=== PATIENT | female | born 1940 | race Caucasian/White ===

== ENCOUNTER 2022-02-16 19:40 | Emergency (ER) | payer SELFPAY ==
[2022-02-16 19:50] VITALS: BP 149/88; RESP 18; TEMP 98.2; BMI 21.9
[2022-02-16] MEDS ORDERED: DIPHTH,PERTUSS(ACELL),TET 0.5 ML DISP.SYRIN IM ONE ×2 (20:57→21:25)
[2022-02-16 21:43] VITALS: PULSE 100
== END 2022-02-16 21:43 | disposition home or self-care (01) ==
LOC: JER 19:40 → JERFT 19:40
PROC: 3E0234Z Introduction of Serum, Toxoid and Vaccine into Muscle, Percutaneous Approach (ICD-10-PCS; principal; 2022-02-16)
DX: S81.811A Laceration without foreign body, right lower leg, initial encounter (principal); W01.119A Fall on same level from slipping, tripping and stumbling with subsequent striking against unspecified sharp object, initial encounter
CPT/HCPCS: 90715; 99284-25

== ENCOUNTER 2022-02-19 14:38 | Emergency (ER) | payer SELFPAY ==
[2022-02-19 14:44] VITALS: BP 136/95; PULSE 99; RESP 20; TEMP 98.1; BMI 21.2
== END 2022-02-19 16:14 | disposition home or self-care (01) ==
LOC: JERFT 14:38
DX: S81.801A Unspecified open wound, right lower leg, initial encounter (principal)
CPT/HCPCS: 99283-25

== ENCOUNTER 2023-08-25 08:10 | Inpatient (IN) | payer OTHER ==
[2023-08-25 10:29] LABS: BASO % 0.2 % (0-2.0); EOS % 0.2 % (0-4.5); HEMATOCRIT 17.2 % (32.4-45.2); LYMPH % 15.7 % (8-40); MCH 23.3 pg (25.7-33.7); MEAN CELL VOLUME 75.2 fl (80-96); MEAN PLT VOLUME 6.3 fl (7.5-11.1); MONO % 9.2 % (3.8-10.2); NEUT % 74.7 % (42.8-82.8); PLATELET COUNT 268 10^3/uL (134-434); RBC 2.28 M/mm3 (3.60-5.2); RDW 18.9 % (11.6-15.6); WHITE BLOOD COUNT 7.6 K/mm3 (4.0-10.0)
[2023-08-25] MEDS ORDERED: ACETAMINOPHEN INJECTION 100 ML IVPB ONE (10:34)
[2023-08-25 10:40] LABS: HEMOGLOBIN 5.3 GM/dL (10.7-15.3)
[2023-08-25] MEDS: SODIUM CHLORIDE 0.9% 500 ML INFUS.BAG IV ONE (10:41)
[2023-08-25] MEDS: ACETAMINOPHEN 1000 MG/100 ML BAG IVPB ONE (10:41)
[2023-08-25 10:52] LABS: POTASSIUM 5.7 mmol/L (3.5-5.1)
[2023-08-25 10:54] LABS: ALBUMIN 1.6 g/dl (3.4-5.0); BLOOD UREA NITROGEN 28.1 mg/dL (7-18); CALCIUM 7.8 mg/dL (8.5-10.1); MAGNESIUM 2.1 mg/dL (1.8-2.4)
[2023-08-25 10:57] LABS: CREATININE 0.8 mg/dL (0.55-1.3)
[2023-08-25 10:59] LABS: BILIRUBIN,TOTAL 0.9 mg/dL (0.2-1); TOT PROT 6.4 g/dl (6.4-8.2)
[2023-08-25 11:02] LABS: N-TERMINAL BNP 585.1 pg/ml (5-450)
[2023-08-25 13:32] LABS: URINE APPEARANCE CLEAR; URINE BILIRUBIN NEGATIVE (NEGATIVE); URINE COLOR YELLOW; URINE GLUCOSE (UA) NEGATIVE (NEGATIVE); URINE KETONE NEGATIVE (NEGATIVE); URINE LEUK ESTERASE NEGATIVE (NEGATIVE); URINE NITRITE NEGATIVE (NEGATIVE); URINE PROTEIN NEGATIVE (NEGATIVE)
[2023-08-25] MEDS: SODIUM ZIRCONIUM CYCLOSILICATE (LOKELMA) 5 GM PACKET PO ONE (15:13)
[2023-08-25] MEDS: SODIUM CHLORIDE 1,000 ML IV SCH (15:13)
[2023-08-25 17:12] VITALS: BMI 20.2
[2023-08-26] MEDS: ACETAMINOPHEN 1000 MG/100 ML BAG IVPB PRN (03:38)
[2023-08-26 08:10] LABS: BASO % 0.4 % (0-2.0); EOS % 0.4 % (0-4.5); HEMATOCRIT 18.7 % (32.4-45.2); LYMPH % 15.9 % (8-40); MCH 25.6 pg (25.7-33.7); MCHC 32.5 g/dl (32.0-36.0); MEAN CELL VOLUME 78.8 fl (80-96); MEAN PLT VOLUME 6.5 fl (7.5-11.1); NEUT % 75.3 % (42.8-82.8); PLATELET COUNT 245 10^3/uL (134-434); RBC 2.37 M/mm3 (3.60-5.2); RDW 20.3 % (11.6-15.6); WHITE BLOOD COUNT 6.9 K/mm3 (4.0-10.0)
[2023-08-26 08:20] LABS: HEMOGLOBIN 6.1 GM/dL (10.7-15.3)
[2023-08-26 08:47] LABS: POTASSIUM 4.6 mmol/L (3.5-5.1)
[2023-08-26 08:54] LABS: BLOOD UREA NITROGEN 28.5 mg/dL (7-18)
[2023-08-26 08:58] LABS: ALBUMIN 1.3 g/dl (3.4-5.0); CALCIUM 7.7 mg/dL (8.5-10.1); MAGNESIUM 2.2 mg/dL (1.8-2.4)
[2023-08-26 09:01] LABS: CREATININE 0.8 mg/dL (0.55-1.3); PHOSPHOROUS 3.1 mg/dL (2.5-4.9)
[2023-08-26 09:03] LABS: BILIRUBIN,TOTAL 0.9 mg/dL (0.2-1); TOT PROT 5.6 g/dl (6.4-8.2)
[2023-08-27 08:28] LABS: BASO % 0.2 % (0-2.0); EOS % 0.1 % (0-4.5); HEMATOCRIT 20.8 % (32.4-45.2); LYMPH % 11.9 % (8-40); MCHC 32.4 g/dl (32.0-36.0); MEAN CELL VOLUME 80.2 fl (80-96); MEAN PLT VOLUME 6.6 fl (7.5-11.1); MONO % 6.1 % (3.8-10.2); NEUT % 81.7 % (42.8-82.8); PLATELET COUNT 260 10^3/uL (134-434); RBC 2.59 M/mm3 (3.60-5.2); RDW 19.8 % (11.6-15.6); WHITE BLOOD COUNT 7.3 K/mm3 (4.0-10.0)
[2023-08-27 08:37] LABS: HEMOGLOBIN 6.7 GM/dL (10.7-15.3)
[2023-08-27 08:52] LABS: POTASSIUM 5.1 mmol/L (3.5-5.1)
[2023-08-27 09:01] LABS: BLOOD UREA NITROGEN 27.6 mg/dL (7-18); CALCIUM 7.7 mg/dL (8.5-10.1)
[2023-08-27 09:04] LABS: CREATININE 0.7 mg/dL (0.55-1.3)
[2023-08-27 10:42] LABS: ANISOCYTOSIS 0; MACROCYTOSIS 0
[2023-08-27] MEDS: FUROSEMIDE 40 MG/4 ML INJECTABLE VIAL IVPUSH ONE (13:35)
[2023-08-27] MEDS: MINERAL OIL/PET HY-PHL TOPICAL OINTMENT 454 GM JAR TP SCH (17:01)
[2023-08-27] MEDS: SODIUM CHLORIDE 1,000 ML IV SCH (17:02)
[2023-08-27] MEDS: ACETAMINOPHEN 325 MG TABLET (FP) PO PRN (18:26)
[2023-08-28 08:36] LABS: POTASSIUM 5.2 mmol/L (3.5-5.1)
[2023-08-28 08:39] LABS: CALCIUM 7.9 mg/dL (8.5-10.1)
[2023-08-28 08:40] LABS: BLOOD UREA NITROGEN 22.9 mg/dL (7-18); MAGNESIUM 2.4 mg/dL (1.8-2.4)
[2023-08-28 08:42] LABS: URIC ACID 4.7 mg/dL (2.6-7.2)
[2023-08-28 08:43] LABS: CREATININE 0.7 mg/dL (0.55-1.3); PHOSPHOROUS 2.5 mg/dL (2.5-4.9)
[2023-08-28] MEDS: MULTIVITAMINS (DAILY MVI) TABLET (FP) PO SCH (09:13)
[2023-08-28] MEDS: SODIUM CHLORIDE 1,000 ML IV SCH (09:16)
[2023-08-28 09:46] LABS: INR 1.38 (0.83-1.09)
[2023-08-28 10:38] LABS: ACTIVATED PTT 30.2 SECONDS (25.2-36.5)
[2023-08-28] MEDS: SODIUM ZIRCONIUM CYCLOSILICATE (LOKELMA) 5 GM PACKET PO SCH (12:25)
[2023-08-29 10:08] LABS: HEMATOCRIT 20.1 % (32.4-45.2); MCH 26.4 pg (25.7-33.7); MCHC 32.4 g/dl (32.0-36.0); MEAN CELL VOLUME 81.5 fl (80-96); MEAN PLT VOLUME 6.5 fl (7.5-11.1); PLATELET COUNT 245 10^3/uL (134-434); RBC 2.46 M/mm3 (3.60-5.2); RDW 20.6 % (11.6-15.6); WHITE BLOOD COUNT 5.7 K/mm3 (4.0-10.0)
[2023-08-29 10:20] LABS: HEMOGLOBIN 6.5 GM/dL (10.7-15.3)
[2023-08-29 10:25] LABS: POTASSIUM 4.7 mmol/L (3.5-5.1)
[2023-08-29 10:28] LABS: CALCIUM 7.6 mg/dL (8.5-10.1)
[2023-08-29 10:29] LABS: BLOOD UREA NITROGEN 16.6 mg/dL (7-18); MAGNESIUM 2.4 mg/dL (1.8-2.4)
[2023-08-29 10:30] LABS: CREATININE 0.7 mg/dL (0.55-1.3); PHOSPHOROUS 2.1 mg/dL (2.5-4.9)
[2023-08-29 12:30] LABS: ANISOCYTOSIS 2+; MACROCYTOSIS 0
[2023-08-30 08:36] LABS: BASO % 0.4 % (0-2.0); EOS % 0.5 % (0-4.5); HEMATOCRIT 19.3 % (32.4-45.2); LYMPH % 13.9 % (8-40); MCHC 32.3 g/dl (32.0-36.0); MEAN CELL VOLUME 80.5 fl (80-96); MEAN PLT VOLUME 6.5 fl (7.5-11.1); MONO % 6.2 % (3.8-10.2); PLATELET COUNT 241 10^3/uL (134-434); RDW 20.7 % (11.6-15.6); WHITE BLOOD COUNT 6.5 K/mm3 (4.0-10.0)
[2023-08-30 08:40] LABS: INR 1.47 (0.83-1.09)
[2023-08-30 08:43] LABS: ACTIVATED PTT 28.7 SECONDS (25.2-36.5)
[2023-08-30 09:04] LABS: POTASSIUM 4.8 mmol/L (3.5-5.1)
[2023-08-30 09:07] LABS: CALCIUM 7.8 mg/dL (8.5-10.1)
[2023-08-30 09:08] LABS: MAGNESIUM 2.2 mg/dL (1.8-2.4)
[2023-08-30 09:10] LABS: ALBUMIN 1.4 g/dl (3.4-5.0)
[2023-08-30 09:11] LABS: CREATININE 0.6 mg/dL (0.55-1.3); HEMOGLOBIN 6.2 GM/dL (10.7-15.3)
[2023-08-30 09:14] LABS: BILIRUBIN,DIRECT 0.4 mg/dL (0.0-0.2)
[2023-08-30 09:15] LABS: TOT PROT 5.9 g/dl (6.4-8.2)
[2023-08-30 09:16] LABS: BILIRUBIN,TOTAL 0.6 mg/dL (0.2-1)
[2023-08-30 09:19] LABS: PHOSPHOROUS 2.1 mg/dL (2.5-4.9)
[2023-08-30 15:07] LABS: IG A QN SERUM. 176 mg/dL (64-422)
[2023-08-30] MEDS: FUROSEMIDE 40 MG/4 ML INJECTABLE VIAL IVPUSH ONE (20:32)
[2023-08-31 07:53] LABS: BASO % 0.4 % (0-2.0); EOS % 0.3 % (0-4.5); HEMOGLOBIN 7.1 GM/dL (10.7-15.3); LYMPH % 17.1 % (8-40); MCH 26.4 pg (25.7-33.7); MCHC 32.3 g/dl (32.0-36.0); MEAN CELL VOLUME 81.7 fl (80-96); MEAN PLT VOLUME 6.5 fl (7.5-11.1); MONO % 7.1 % (3.8-10.2); NEUT % 75.1 % (42.8-82.8); PLATELET COUNT 253 10^3/uL (134-434); RDW 20.2 % (11.6-15.6)
[2023-08-31 08:13] LABS: POTASSIUM 4.7 mmol/L (3.5-5.1)
[2023-08-31 08:17] LABS: CALCIUM 7.8 mg/dL (8.5-10.1)
[2023-08-31 08:18] LABS: MAGNESIUM 2.2 mg/dL (1.8-2.4)
[2023-08-31 08:20] LABS: CREATININE 0.7 mg/dL (0.55-1.3); PHOSPHOROUS 2.2 mg/dL (2.5-4.9); URIC ACID 4.6 mg/dL (2.6-7.2)
[2023-08-31 16:09] LABS: FREE KAPPA,SERUM 54.3 mg/L (3.3-19.4)
[2023-08-31] MEDS: IRON SUCROSE INJECTION 100 MG in SODIUM CHLORIDE 95 ML IVPB ONE (17:23)
[2023-09-01 09:37] LABS: POTASSIUM 4.6 mmol/L (3.5-5.1)
[2023-09-01 09:38] LABS: CALCIUM 7.7 mg/dL (8.5-10.1)
[2023-09-01 09:39] LABS: BLOOD UREA NITROGEN 17.3 mg/dL (7-18)
[2023-09-01 09:42] LABS: URIC ACID 4.1 mg/dL (2.6-7.2)
[2023-09-01 09:43] LABS: CREATININE 0.6 mg/dL (0.55-1.3); PHOSPHOROUS 2.6 mg/dL (2.5-4.9)
[2023-09-01 10:29] LABS: HEMATOCRIT 23.6 % (32.4-45.2); HEMOGLOBIN 7.6 GM/dL (10.7-15.3); MCH 26.4 pg (25.7-33.7); MEAN CELL VOLUME 82.7 fl (80-96); MEAN PLT VOLUME 6.6 fl (7.5-11.1); PLATELET COUNT 252 10^3/uL (134-434); RBC 2.86 M/mm3 (3.60-5.2); RDW 20.3 % (11.6-15.6); WHITE BLOOD COUNT 6.5 K/mm3 (4.0-10.0)
[2023-09-01] MEDS: guaiFENesin 200 MG/10 ML 10 ML UNIT-DOSE CUPS PO PRN (18:41)
[2023-09-02 07:32] LABS: BASO % 0.3 % (0-2.0); EOS % 0.3 % (0-4.5); HEMATOCRIT 20.7 % (32.4-45.2); LYMPH % 13.9 % (8-40); MCH 26.7 pg (25.7-33.7); MCHC 32.4 g/dl (32.0-36.0); MEAN CELL VOLUME 82.5 fl (80-96); MEAN PLT VOLUME 6.5 fl (7.5-11.1); NEUT % 78.5 % (42.8-82.8); PLATELET COUNT 246 10^3/uL (134-434); RBC 2.51 M/mm3 (3.60-5.2); RDW 21.1 % (11.6-15.6); WHITE BLOOD COUNT 6.5 K/mm3 (4.0-10.0)
[2023-09-02 07:35] LABS: HEMOGLOBIN 6.7 GM/dL (10.7-15.3)
[2023-09-02 07:51] LABS: POTASSIUM 4.6 mmol/L (3.5-5.1)
[2023-09-02 07:58] LABS: ALBUMIN 1.3 g/dl (3.4-5.0); CALCIUM 7.6 mg/dL (8.5-10.1)
[2023-09-02 07:59] LABS: BLOOD UREA NITROGEN 17.4 mg/dL (7-18)
[2023-09-02 08:01] LABS: CREATININE 0.7 mg/dL (0.55-1.3)
[2023-09-02 08:03] LABS: BILIRUBIN,TOTAL 0.7 mg/dL (0.2-1); TOT PROT 5.9 g/dl (6.4-8.2)
[2023-09-02 08:53] LABS: ANISOCYTOSIS 2+; MACROCYTOSIS 0
[2023-09-03] MEDS: LACTATED RINGERS SOLUTION 1,000 ML/1,000 ML INFUS.BAG IV SCH (03:11)
[2023-09-03 08:02] LABS: HEMATOCRIT 24.8 % (32.4-45.2); MCH 26.6 pg (25.7-33.7); MCHC 32.1 g/dl (32.0-36.0); MEAN CELL VOLUME 82.9 fl (80-96); MEAN PLT VOLUME 7.1 fl (7.5-11.1); PLATELET COUNT 251 10^3/uL (134-434); RBC 2.99 M/mm3 (3.60-5.2); RDW 19.8 % (11.6-15.6); WHITE BLOOD COUNT 8.5 K/mm3 (4.0-10.0)
[2023-09-03 08:04] LABS: EPI CELLS 35 /uL (0-25.1); HYALINE CASTS 0 /uL (0-3.1); URINE APPEARANCE CLEAR; URINE BACTERIA 433 /uL (0-1359); URINE BILIRUBIN 1+ (NEGATIVE); URINE COLOR DK YELLOW; URINE GLUCOSE (UA) NEGATIVE (NEGATIVE); URINE KETONE NEGATIVE (NEGATIVE); URINE LEUK ESTERASE NEGATIVE (NEGATIVE); URINE NITRITE NEGATIVE (NEGATIVE); URINE PROTEIN 1+ (NEGATIVE); URINE RBC 86.8 /uL (0-23.9); URINE UROBILINOGEN 4.0 E.U/dl mg/dL (0.2-1.0); URINE WBC 20 /uL (0-25.8)
[2023-09-03 08:28] LABS: POTASSIUM 4.5 mmol/L (3.5-5.1)
[2023-09-03 08:38] LABS: ALBUMIN 1.4 g/dl (3.4-5.0); BLOOD UREA NITROGEN 15.7 mg/dL (7-18); CALCIUM 8.1 mg/dL (8.5-10.1); MAGNESIUM 2.2 mg/dL (1.8-2.4)
[2023-09-03 08:41] LABS: CREATININE 0.7 mg/dL (0.55-1.3)
[2023-09-03 08:43] LABS: TOT PROT 6.3 g/dl (6.4-8.2)
[2023-09-03] MEDS ORDERED: CEFEPIME HCL 2 GM VIAL (RESTRICTED TO ID) IVPB SCH (08:45)
[2023-09-03 08:50] LABS: BILIRUBIN,TOTAL 0.9 mg/dL (0.2-1)
[2023-09-03] MEDS ORDERED: FENTANYL CITRATE/PF 50 MCG/ML VIAL ONE ×2 (09:45)
[2023-09-03] MEDS ORDERED: MIDAZOLAM HCL 2 MG/2 ML SINGLE DOSE VIAL ONE (09:45)
[2023-09-03] MEDS: SODIUM CHLORIDE 500 ML IV SCH (10:00)
[2023-09-03] MEDS: FENTANYL CITRATE/PF 50 MCG/ML VIAL IVPUSH ONE (10:14)
[2023-09-03] MEDS: MIDAZOLAM HCL 2 MG/2 ML SINGLE DOSE VIAL IVPUSH ONE (10:14)
[2023-09-03] MEDS: CEFEPIME 2 GM in DEXTROSE 5%-WATER 100 ML IVPB SCH (11:16)
[2023-09-03 17:08] LABS: IG A QN SERUM. 188 mg/dL (64-422); IG M QN SERUM 198 mg/dL (26-217)
[2023-09-03 18:09] LABS: IG A QN SERUM. 197 mg/dL (64-422)
[2023-09-03] MEDS ORDERED: CEFEPIME 2 GM in DEXTROSE 5%-WATER 100 ML IVPB SCH (22:00)
[2023-09-04 08:46] LABS: HEMATOCRIT 23.7 % (32.4-45.2); HEMOGLOBIN 7.8 GM/dL (10.7-15.3); MCH 26.9 pg (25.7-33.7); MCHC 32.9 g/dl (32.0-36.0); MEAN PLT VOLUME 6.8 fl (7.5-11.1); PLATELET COUNT 245 10^3/uL (134-434); RBC 2.89 M/mm3 (3.60-5.2); RDW 20.2 % (11.6-15.6)
[2023-09-04 08:58] LABS: POTASSIUM 4.4 mmol/L (3.5-5.1)
[2023-09-04 09:03] LABS: ALBUMIN 1.3 g/dl (3.4-5.0); BLOOD UREA NITROGEN 19.6 mg/dL (7-18); CALCIUM 7.7 mg/dL (8.5-10.1)
[2023-09-04 09:07] LABS: CREATININE 0.6 mg/dL (0.55-1.3)
[2023-09-04 09:08] LABS: BILIRUBIN,TOTAL 0.8 mg/dL (0.2-1)
[2023-09-04] MEDS: CEFEPIME 1 GM in DEXTROSE 5%-WATER 100 ML IVPB SCH (13:23)
[2023-09-05 09:57] LABS: HEMATOCRIT 27.1 % (32.4-45.2); HEMOGLOBIN 8.6 GM/dL (10.7-15.3); MCH 26.2 pg (25.7-33.7); MCHC 31.9 g/dl (32.0-36.0); MEAN CELL VOLUME 82.1 fl (80-96); MEAN PLT VOLUME 7.2 fl (7.5-11.1); RDW 20.5 % (11.6-15.6); WHITE BLOOD COUNT 11.7 K/mm3 (4.0-10.0)
[2023-09-05 09:57] LABS: POTASSIUM 4.4 mmol/L (3.5-5.1)
[2023-09-05 10:06] LABS: ALBUMIN 1.4 g/dl (3.4-5.0); BLOOD UREA NITROGEN 19.7 mg/dL (7-18); CALCIUM 7.8 mg/dL (8.5-10.1); MAGNESIUM 1.9 mg/dL (1.8-2.4)
[2023-09-05 10:09] LABS: CREATININE 0.7 mg/dL (0.55-1.3); PHOSPHOROUS 2.7 mg/dL (2.5-4.9)
[2023-09-05 10:11] LABS: BILIRUBIN,TOTAL 0.9 mg/dL (0.2-1); TOT PROT 6.3 g/dl (6.4-8.2)
[2023-09-05] MEDS: DEXTROSE 50%-WATER 25 GM/50 ML DISP.SYRIN IVPUSH ONE (10:47)
[2023-09-05] MEDS: SODIUM CHLORIDE 1,000 ML IV SCH (10:57)
[2023-09-05] MEDS: DEXTROSE 50%-WATER - 25 GM/50 ML VIAL IVPUSH ONE (10:58)
[2023-09-05 11:47] LABS: PLATELET COUNT 235 10^3/uL (134-434)
[2023-09-06 08:38] LABS: HEMATOCRIT 22.7 % (32.4-45.2); HEMOGLOBIN 7.4 GM/dL (10.7-15.3); MCH 26.8 pg (25.7-33.7); MCHC 32.7 g/dl (32.0-36.0); MEAN CELL VOLUME 81.9 fl (80-96); MEAN PLT VOLUME 6.9 fl (7.5-11.1); PLATELET COUNT 229 10^3/uL (134-434); RBC 2.77 M/mm3 (3.60-5.2); RDW 19.9 % (11.6-15.6); WHITE BLOOD COUNT 8.3 K/mm3 (4.0-10.0)
[2023-09-06 08:43] LABS: ALBUMIN 1.2 g/dl (3.4-5.0); BLOOD UREA NITROGEN 18.3 mg/dL (7-18)
[2023-09-06 08:44] LABS: CALCIUM 7.4 mg/dL (8.5-10.1); MAGNESIUM 1.9 mg/dL (1.8-2.4)
[2023-09-06 08:47] LABS: CREATININE 0.6 mg/dL (0.55-1.3)
[2023-09-06 08:48] LABS: BILIRUBIN,TOTAL 0.7 mg/dL (0.2-1); TOT PROT 5.7 g/dl (6.4-8.2)
[2023-09-07 07:32] LABS: HEMATOCRIT 24.8 % (32.4-45.2); HEMOGLOBIN 8.1 GM/dL (10.7-15.3); MCH 26.4 pg (25.7-33.7); MCHC 32.5 g/dl (32.0-36.0); MEAN CELL VOLUME 81.1 fl (80-96); MEAN PLT VOLUME 6.7 fl (7.5-11.1); PLATELET COUNT 230 10^3/uL (134-434); RBC 3.06 M/mm3 (3.60-5.2); RDW 19.2 % (11.6-15.6); WHITE BLOOD COUNT 8.4 K/mm3 (4.0-10.0)
[2023-09-07 07:57] LABS: CALCIUM 7.5 mg/dL (8.5-10.1)
[2023-09-07 07:58] LABS: ALBUMIN 1.2 g/dl (3.4-5.0)
[2023-09-07 08:01] LABS: CREATININE 0.6 mg/dL (0.55-1.3); MAGNESIUM 1.8 mg/dL (1.8-2.4)
[2023-09-07 08:02] LABS: TOT PROT 5.8 g/dl (6.4-8.2)
[2023-09-07 08:07] LABS: BILIRUBIN,TOTAL 0.7 mg/dL (0.2-1)
[2023-09-08] MEDS ORDERED: BUPIVACAINE HCL/PF 0.5% (5MG/ML) 10 ML VIAL ONE (07:31)
[2023-09-08] MEDS ORDERED: FENTANYL CITRATE/PF 50 MCG/ML VIAL ONE (07:42)
[2023-09-08] MEDS ORDERED: PROPOFOL 20 ML ONE (07:42)
[2023-09-08] MEDS ORDERED: LIDOCAINE HCL/PF 2% SDV 5ML VIAL ONE (07:42)
[2023-09-08] MEDS ORDERED: LIDOCAINE HCL 1%, 10 MG/ML (20ML VIAL) ONE (07:58)
[2023-09-08] MEDS: ceFAZolin SODIUM 1 GM VIAL IVPB ONE ×2 (08:15→08:20)
[2023-09-08] MEDS ORDERED: ceFAZolin SODIUM 1 GM VIAL ONE (08:25)
[2023-09-08] MEDS ORDERED: DEXAMETHASONE SOD PHOSPHATE 4 MG/1 ML VIAL ONE (08:25)
[2023-09-08] MEDS: LIDOCAINE 1% P/F 10 MG/ML VIAL INF ONE (08:40)
[2023-09-08] MEDS: LIDOCAINE HCL 1%, 10 MG/ML (50 mL VIAL) NR ONE (08:40)
[2023-09-08] MEDS: BUPIVACAINE HCL/PF 0.5% (5MG/ML) 10 ML VIAL IJ ONE ×2 (08:40)
[2023-09-08] MEDS ORDERED: ONDANSETRON 4 MG/2 ML VIAL ONE (08:59)
[2023-09-08] MEDS ORDERED: KETOROLAC TROMETHAMINE 30 MG/1 ML VIAL ONE (08:59)
[2023-09-08] MEDS: LACTATED RINGERS SOLUTION 1,000 ML/1,000 ML INFUS.BAG IV SCH (09:30)
[2023-09-08] MEDS ORDERED: ONDANSETRON 4 MG/2 ML VIAL IVPUSH PRN ×2 (09:32→09:43)
[2023-09-08] MEDS ORDERED: PROMETHAZINE HCL 25 MG/1 ML VIAL IVPB PRN ×2 (09:32→09:43)
[2023-09-08] MEDS ORDERED: guaiFENesin 200 MG/10 ML 10 ML UNIT-DOSE CUPS PO PRN (09:43)
[2023-09-08] MEDS ORDERED: LACTATED RINGERS SOLUTION 1,000 ML IV SCH (09:45)
[2023-09-08] MEDS ORDERED: ACETAMINOPHEN INJECTION 100 ML IVPB ONE (09:48)
[2023-09-08] MEDS: ACETAMINOPHEN 1000 MG/100 ML BAG IVPB ONE ×2 (09:50→10:16)
[2023-09-08] MEDS: CEFEPIME 1 GM in DEXTROSE 5%-WATER 100 ML IVPB SCH (11:11)
[2023-09-08 13:01] LABS: BASO % 0.1 % (0-2.0); EOS % 0.1 % (0-4.5); HEMATOCRIT 26.3 % (32.4-45.2); HEMOGLOBIN 8.7 GM/dL (10.7-15.3); LYMPH % 8.6 % (8-40); MCH 26.8 pg (25.7-33.7); MEAN CELL VOLUME 81.1 fl (80-96); MONO % 6.2 % (3.8-10.2); PLATELET COUNT 222 10^3/uL (134-434); RBC 3.24 M/mm3 (3.60-5.2); RDW 20.1 % (11.6-15.6); WHITE BLOOD COUNT 7.1 K/mm3 (4.0-10.0)
[2023-09-08 13:47] LABS: POTASSIUM 4.4 mmol/L (3.5-5.1)
[2023-09-08 13:53] LABS: CALCIUM 7.9 mg/dL (8.5-10.1)
[2023-09-08 13:54] LABS: ALBUMIN 1.3 g/dl (3.4-5.0)
[2023-09-08 13:55] LABS: BILIRUBIN,TOTAL 0.6 mg/dL (0.2-1)
[2023-09-08 13:56] LABS: CREATININE 0.7 mg/dL (0.55-1.3)
[2023-09-08 13:58] LABS: TOT PROT 5.9 g/dl (6.4-8.2)
[2023-09-08] MEDS: SODIUM ZIRCONIUM CYCLOSILICATE (LOKELMA) 5 GM PACKET PO SCH (15:21)
[2023-09-08] MEDS: MULTIVITAMINS (DAILY MVI) TABLET (FP) PO SCH (15:21)
[2023-09-08] MEDS: MINERAL OIL/PET HY-PHL TOPICAL OINTMENT 454 GM JAR TP SCH (15:25)
[2023-09-08] MEDS: AMINO ACIDS/PROTEIN HYDROLYS 30 ML LIQUID.PKT PO SCH (16:48)
[2023-09-09] MEDS: LACTATED RINGERS SOLUTION 1,000 ML/1,000 ML INFUS.BAG IV SCH (10:27)
[2023-09-09] MEDS: ACETAMINOPHEN 325 MG TABLET (FP) PO PRN (23:37)
[2023-09-10] MEDS: FUROSEMIDE 40 MG/4 ML INJECTABLE VIAL IVPUSH ONE (08:53)
[2023-09-10] MEDS: LACTATED RINGERS SOLUTION 1,000 ML/1,000 ML INFUS.BAG IV SCH (09:05)
[2023-09-10] MEDS: ACETAMINOPHEN 1000 MG/100 ML BAG IVPB ONE (09:05)
[2023-09-10 09:43] LABS: HEMATOCRIT 25.7 % (32.4-45.2); HEMOGLOBIN 8.3 GM/dL (10.7-15.3); MCH 26.7 pg (25.7-33.7); MCHC 32.5 g/dl (32.0-36.0); MEAN CELL VOLUME 82.2 fl (80-96); MEAN PLT VOLUME 7.5 fl (7.5-11.1); PLATELET COUNT 283 10^3/uL (134-434); RBC 3.12 M/mm3 (3.60-5.2); RDW 19.9 % (11.6-15.6); WHITE BLOOD COUNT 5.8 K/mm3 (4.0-10.0)
[2023-09-10 10:00] LABS: POTASSIUM 4.2 mmol/L (3.5-5.1)
[2023-09-10 10:04] LABS: BLOOD UREA NITROGEN 36.2 mg/dL (7-18)
[2023-09-10 10:06] LABS: CALCIUM 7.7 mg/dL (8.5-10.1)
[2023-09-10 10:07] LABS: CREATININE 0.9 mg/dL (0.55-1.3)
[2023-09-10 13:01] VITALS: BP 129/78; PULSE 114; RESP 20; TEMP 98
== END 2023-09-10 14:07 | DRG 823 ==
LOC: JER 08:10 → JERBED 13:01 → J7W 13:51 → OBSVTOIN 14:33
PROVIDERS: ADMIT Internal Medicine; ATTEND Internal Medicine
PROC: 30233N1 Transfusion of Nonautologous Red Blood Cells into Peripheral Vein, Percutaneous Approach (ICD-10-PCS; 2023-08-25)
PROC: 07B63ZX Excision of Left Axillary Lymphatic, Percutaneous Approach, Diagnostic (ICD-10-PCS; 2023-08-30)
PROC: 079T3ZX Drainage of Bone Marrow, Percutaneous Approach, Diagnostic (ICD-10-PCS; 2023-09-03)
PROC: 07B63ZX Excision of Left Axillary Lymphatic, Percutaneous Approach, Diagnostic (ICD-10-PCS; principal; 2023-09-08 08:00)
DX: C85.10 Unspecified B-cell lymphoma, unspecified site (principal); J18.9 Pneumonia, unspecified organism; E46 Unspecified protein-calorie malnutrition; E87.1 Hypo-osmolality and hyponatremia; D64.9 Anemia, unspecified; R16.1 Splenomegaly, not elsewhere classified; Z68.20 Body mass index [BMI] 20.0-20.9, adult; E87.5 Hyperkalemia; E83.51 Hypocalcemia; R74.01 Elevation of levels of liver transaminase levels; E86.0 Dehydration; R59.1 Generalized enlarged lymph nodes
CPT/HCPCS: 0241U-QW; 20225; 32408; 36415; 36430; 36511; 70450-TC; 71045-TC-FY; 71260-TC; 73560-TC-LT-FY; 73560-TC-RT-FY; 74018-TC-FY; 74177-TC; 76942-TC; 77012-TC; 80048; 80053; 80076; 81003; 82272; 82728; 82784; 82962; 83010; 83051; 83540; 83550; 83615; 83735; 83880; 83883; 84100; 84155; 84165; 84436; 84443; 84484; 84550; 85025; 85027; 85045; 85384; 85610; 85730; 86850; 86880; 86900; 86901; 86922; 87040; 87086; 88300-TC; 88305-TC; 88307-TC; 93005; 93010; 94010; 94760; 97116-GP; 97161-GP; 99285-25; G0378; J0131; P9038; P9058; Q9967

== ENCOUNTER 2023-09-12 22:35 | Inpatient (IN) | payer OTHER ==
[2023-09-12] MEDS ORDERED: ACETAMINOPHEN INJECTION 100 ML IVPB ONE (23:45)
[2023-09-13] MEDS: ACETAMINOPHEN 1000 MG/100 ML BAG IVPB ONE (00:14)
[2023-09-13 00:32] LABS: BASO % 0.6 % (0-2.0); EOS % 0.4 % (0-4.5); HEMATOCRIT 21.3 % (32.4-45.2); LYMPH % 16.1 % (8-40); MCH 26.6 pg (25.7-33.7); MCHC 32.4 g/dl (32.0-36.0); MEAN CELL VOLUME 82.2 fl (80-96); MEAN PLT VOLUME 7.3 fl (7.5-11.1); MONO % 9.5 % (3.8-10.2); NEUT % 73.4 % (42.8-82.8); PLATELET COUNT 256 10^3/uL (134-434); RBC 2.59 M/mm3 (3.60-5.2); RDW 19.5 % (11.6-15.6); WHITE BLOOD COUNT 5.9 K/mm3 (4.0-10.0)
[2023-09-13 00:44] LABS: POTASSIUM 4.1 mmol/L (3.5-5.1)
[2023-09-13 00:46] LABS: CALCIUM 7.6 mg/dL (8.5-10.1)
[2023-09-13 00:47] LABS: ALBUMIN 1.2 g/dl (3.4-5.0); BLOOD UREA NITROGEN 19.6 mg/dL (7-18)
[2023-09-13 00:50] LABS: CREATININE 0.7 mg/dL (0.55-1.3)
[2023-09-13 00:52] LABS: BILIRUBIN,TOTAL 0.7 mg/dL (0.2-1)
[2023-09-13 00:55] LABS: N-TERMINAL BNP 3009.9 pg/ml (5-450)
[2023-09-13 00:56] LABS: HEMOGLOBIN 6.9 GM/dL (10.7-15.3)
[2023-09-13 01:16] LABS: INR 1.72 (0.83-1.09); PROTHROMBIN TIME (PATIENT) 19.8 SEC (9.7-13.0)
[2023-09-13 01:19] LABS: ACTIVATED PTT 27.8 SECONDS (25.2-36.5)
[2023-09-13] MEDS: FUROSEMIDE 40 MG/4 ML INJECTABLE VIAL IVPUSH ONE (06:40)
[2023-09-13 09:47] LABS: ANISOCYTOSIS 1+; MACROCYTOSIS 0
[2023-09-13 09:51] LABS: BASO % 0.4 % (0-2.0); EOS % 0.3 % (0-4.5); HEMATOCRIT 25.9 % (32.4-45.2); HEMOGLOBIN 8.5 GM/dL (10.7-15.3); MCH 27.1 pg (25.7-33.7); MCHC 32.9 g/dl (32.0-36.0); MEAN CELL VOLUME 82.3 fl (80-96); MEAN PLT VOLUME 7.2 fl (7.5-11.1); NEUT % 81.3 % (42.8-82.8); PLATELET COUNT 291 10^3/uL (134-434); RBC 3.15 M/mm3 (3.60-5.2); RDW 18.9 % (11.6-15.6); WHITE BLOOD COUNT 6.9 K/mm3 (4.0-10.0)
[2023-09-13 10:03] LABS: CHLORIDE 103 mmol/L (98-107); POTASSIUM 3.8 mmol/L (3.5-5.1); SODIUM 138 mmol/L (136-145)
[2023-09-13 10:06] LABS: ALBUMIN 1.4 g/dl (3.4-5.0); CALCIUM 7.7 mg/dL (8.5-10.1)
[2023-09-13 10:07] LABS: ANION GAP 8 mmol/L (4-13); BLOOD UREA NITROGEN 18.2 mg/dL (7-18); CO2 27 mmol/L (21-32); GLUCOSE,RANDOM 74 mg/dL (74-106)
[2023-09-13 10:09] LABS: IRON SERUM 23 ug/dL (50-175)
[2023-09-13 10:10] LABS: CREATININE 0.7 mg/dL (0.55-1.3); SGOT/AST 65 U/L (15-37); SGPT/ALT 25 U/L (13-61); TOTAL IRON BINDING CAPACITY 129 ug/dL (250-450)
[2023-09-13 10:11] LABS: BILIRUBIN,TOTAL 0.8 mg/dL (0.2-1); TOT PROT 6.3 g/dl (6.4-8.2)
[2023-09-13 10:12] LABS: ALK PHOS 163 U/L (45-117); LDH 226 U/L (84-246)
[2023-09-13] MEDS ORDERED: ACETAMINOPHEN 1000 MG/100 ML BAG IVPB PRN (12:41)
[2023-09-13] MEDS: LIDOCAINE 4% PATCH TP SCH (15:22)
[2023-09-13] MEDS: IBUPROFEN 400 MG TABLET (FP) PO PRN (15:59)
[2023-09-13] MEDS: PIPERACILLIN/TAZOB 3.375 GM 3.375 GM in DEXTROSE 5%-WATER - 50 ML IVPB SCH (16:56)
[2023-09-13] MEDS: guaiFENesin 200 MG/10 ML 10 ML UNIT-DOSE CUPS PO PRN (17:00)
[2023-09-13] MEDS: SODIUM CHLORIDE 1,000 ML IV SCH (19:41)
[2023-09-13] MEDS: OSELTAMIVIR PHOSPHATE 75 MG CAPSULE PO SCH (21:47)
[2023-09-13] MEDS: LIDOCAINE PATCH REMOVAL MC SCH (21:47)
[2023-09-14 09:17] LABS: HEMATOCRIT 29.8 % (32.4-45.2); HEMOGLOBIN 9.8 GM/dL (10.7-15.3); MCH 27.1 pg (25.7-33.7); MCHC 32.9 g/dl (32.0-36.0); MEAN CELL VOLUME 82.3 fl (80-96); MEAN PLT VOLUME 7.1 fl (7.5-11.1); PLATELET COUNT 296 10^3/uL (134-434); RBC 3.62 M/mm3 (3.60-5.2); RDW 18.8 % (11.6-15.6); WHITE BLOOD COUNT 8.8 K/mm3 (4.0-10.0)
[2023-09-14 09:36] LABS: POTASSIUM 3.5 mmol/L (3.5-5.1)
[2023-09-14 09:41] LABS: ALBUMIN 1.4 g/dl (3.4-5.0); CALCIUM 8.2 mg/dL (8.5-10.1)
[2023-09-14 09:42] LABS: BLOOD UREA NITROGEN 19.7 mg/dL (7-18)
[2023-09-14 09:45] LABS: CREATININE 0.7 mg/dL (0.55-1.3)
[2023-09-14 09:46] LABS: BILIRUBIN,TOTAL 0.8 mg/dL (0.2-1); TOT PROT 6.5 g/dl (6.4-8.2)
[2023-09-15 07:35] LABS: HEMATOCRIT 29.3 % (32.4-45.2); HEMOGLOBIN 9.3 GM/dL (10.7-15.3); MCH 26.4 pg (25.7-33.7); MCHC 31.8 g/dl (32.0-36.0); MEAN CELL VOLUME 82.8 fl (80-96); MEAN PLT VOLUME 7.2 fl (7.5-11.1); PLATELET COUNT 256 10^3/uL (134-434); RBC 3.54 M/mm3 (3.60-5.2); RDW 18.9 % (11.6-15.6)
[2023-09-15] MEDS: PIPERACILLIN/TAZOB 3.375 GM 3.375 GM in DEXTROSE 5%-WATER - 50 ML IVPB SCH (07:39)
[2023-09-15 08:25] LABS: POTASSIUM 3.7 mmol/L (3.5-5.1)
[2023-09-15 08:39] LABS: ALBUMIN 1.3 g/dl (3.4-5.0); BLOOD UREA NITROGEN 20.3 mg/dL (7-18); CALCIUM 8.4 mg/dL (8.5-10.1)
[2023-09-15 08:42] LABS: CREATININE 0.8 mg/dL (0.55-1.3)
[2023-09-15 08:44] LABS: BILIRUBIN,TOTAL 0.7 mg/dL (0.2-1); TOT PROT 6.3 g/dl (6.4-8.2)
[2023-09-15] MEDS: FAMOTIDINE 20 MG TABLET PO SCH (10:34)
[2023-09-15] MEDS: METOPROLOL TARTRATE 25 MG TABLET (FP) PO SCH (10:34)
[2023-09-16 12:48] LABS: EPI CELLS >36 /uL (0-25.1); HYALINE CASTS 3 /uL (0-3.1); URINE APPEARANCE TURBID; URINE BACTERIA 4 /uL (0-1359); URINE BILIRUBIN 1+ (NEGATIVE); URINE COLOR DK YELLOW; URINE GLUCOSE (UA) NEGATIVE (NEGATIVE); URINE KETONE NEGATIVE (NEGATIVE); URINE LEUK ESTERASE NEGATIVE (NEGATIVE); URINE NITRITE NEGATIVE (NEGATIVE); URINE PROTEIN 3+ (NEGATIVE); URINE WBC 54 /uL (0-25.8)
[2023-09-16 14:23] LABS: URINE RBC 23 /uL (0-23.9)
[2023-09-16] MEDS: PIPERACILLIN/TAZOB 3.375 GM 3.375 GM in DEXTROSE 5%-WATER - 50 ML IVPB SCH (17:16)
[2023-09-17 07:42] LABS: HEMATOCRIT 26.2 % (32.4-45.2); HEMOGLOBIN 8.7 GM/dL (10.7-15.3); MCH 27.4 pg (25.7-33.7); MCHC 33.1 g/dl (32.0-36.0); MEAN CELL VOLUME 82.8 fl (80-96); MEAN PLT VOLUME 7.1 fl (7.5-11.1); PLATELET COUNT 251 10^3/uL (134-434); RBC 3.16 M/mm3 (3.60-5.2); WHITE BLOOD COUNT 9.2 K/mm3 (4.0-10.0)
[2023-09-17 07:55] LABS: POTASSIUM 3.7 mmol/L (3.5-5.1)
[2023-09-17 07:59] LABS: ALBUMIN 1.2 g/dl (3.4-5.0); CALCIUM 7.8 mg/dL (8.5-10.1)
[2023-09-17 08:00] LABS: BLOOD UREA NITROGEN 19.3 mg/dL (7-18)
[2023-09-17] MEDS ORDERED: DEXTROSE 50%-WATER 25 GM/50 ML DISP.SYRIN IVPUSH ONE (08:01)
[2023-09-17 08:02] LABS: CREATININE 0.8 mg/dL (0.55-1.3)
[2023-09-17 08:04] LABS: BILIRUBIN,TOTAL 0.8 mg/dL (0.2-1)
[2023-09-17] MEDS: DEXTROSE 50%-WATER 25 GM/50 ML DISP.SYRIN IVPUSH ONE (10:38)
[2023-09-17 11:53] LABS: INR 1.72 (0.83-1.09); PROTHROMBIN TIME (PATIENT) 19.9 SEC (9.7-13.0)
[2023-09-17] MEDS: ACETAMINOPHEN 1000 MG/100 ML BAG IVPB PRN (17:58)
[2023-09-18 08:02] LABS: POTASSIUM 3.9 mmol/L (3.5-5.1)
[2023-09-18 08:10] LABS: ALBUMIN 1.4 g/dl (3.4-5.0)
[2023-09-18 08:11] LABS: BLOOD UREA NITROGEN 22.8 mg/dL (7-18); CALCIUM 8.1 mg/dL (8.5-10.1); MAGNESIUM 1.8 mg/dL (1.8-2.4)
[2023-09-18 08:14] LABS: BILIRUBIN,TOTAL 0.7 mg/dL (0.2-1)
[2023-09-18 08:19] LABS: HEMATOCRIT 29.2 % (32.4-45.2); HEMOGLOBIN 9.4 GM/dL (10.7-15.3); MCH 26.7 pg (25.7-33.7); MCHC 32.3 g/dl (32.0-36.0); MEAN CELL VOLUME 82.9 fl (80-96); MEAN PLT VOLUME 7.5 fl (7.5-11.1); RBC 3.53 M/mm3 (3.60-5.2); RDW 18.8 % (11.6-15.6); WHITE BLOOD COUNT 14.2 K/mm3 (4.0-10.0)
[2023-09-18 09:42] LABS: PLATELET COUNT 264 10^3/uL (134-434)
[2023-09-19] MEDS ORDERED: ALBUTEROL SO4 2.5/IPRATROPIUM 0.5 INH SOL 3 ML VIAL.NEB. NEB PRN (07:55)
[2023-09-19 08:07] LABS: HEMATOCRIT 25.8 % (32.4-45.2); HEMOGLOBIN 8.2 GM/dL (10.7-15.3); MCH 26.7 pg (25.7-33.7); MCHC 31.6 g/dl (32.0-36.0); MEAN CELL VOLUME 84.5 fl (80-96); MEAN PLT VOLUME 7.4 fl (7.5-11.1); PLATELET COUNT 219 10^3/uL (134-434); RBC 3.05 M/mm3 (3.60-5.2); WHITE BLOOD COUNT 9.7 K/mm3 (4.0-10.0)
[2023-09-19 08:22] LABS: POTASSIUM 3.8 mmol/L (3.5-5.1)
[2023-09-19 08:24] LABS: ALBUMIN 1.2 g/dl (3.4-5.0); CALCIUM 7.6 mg/dL (8.5-10.1)
[2023-09-19 08:25] LABS: BLOOD UREA NITROGEN 20.9 mg/dL (7-18); MAGNESIUM 1.8 mg/dL (1.8-2.4)
[2023-09-19 08:27] LABS: CREATININE 0.9 mg/dL (0.55-1.3)
[2023-09-19 08:28] LABS: PHOSPHOROUS 2.8 mg/dL (2.5-4.9)
[2023-09-19 08:29] LABS: BILIRUBIN,TOTAL 0.6 mg/dL (0.2-1); TOT PROT 6.3 g/dl (6.4-8.2)
[2023-09-19] MEDS: ACETAMINOPHEN 1000 MG/100 ML BAG IVPB SCH (12:19)
[2023-09-20 12:45] LABS: HEMATOCRIT 25.8 % (32.4-45.2); HEMOGLOBIN 8.3 GM/dL (10.7-15.3); MCH 26.9 pg (25.7-33.7); MCHC 32.1 g/dl (32.0-36.0); MEAN CELL VOLUME 83.9 fl (80-96); MEAN PLT VOLUME 7.3 fl (7.5-11.1); PLATELET COUNT 203 10^3/uL (134-434); RBC 3.08 M/mm3 (3.60-5.2); RDW 19.2 % (11.6-15.6); WHITE BLOOD COUNT 9.6 K/mm3 (4.0-10.0)
[2023-09-20 13:15] LABS: POTASSIUM 4.2 mmol/L (3.5-5.1)
[2023-09-20 13:19] LABS: ALBUMIN 1.3 g/dl (3.4-5.0); BLOOD UREA NITROGEN 22.3 mg/dL (7-18)
[2023-09-20 13:21] LABS: PHOSPHOROUS 2.8 mg/dL (2.5-4.9)
[2023-09-20 13:23] LABS: BILIRUBIN,TOTAL 0.4 mg/dL (0.2-1); TOT PROT 6.4 g/dl (6.4-8.2)
[2023-09-21] MEDS: LACTATED RINGERS SOLUTION 1,000 ML/1,000 ML INFUS.BAG IV SCH ×2 (01:28→17:25)
[2023-09-21] MEDS ORDERED: BUPIVACAINE HCL/PF 0.25% (2.5MG/ML) 10 ML VIAL ONE (12:13)
[2023-09-21 13:01] LABS: HEMATOCRIT 23.7 % (32.4-45.2); HEMOGLOBIN 7.5 GM/dL (10.7-15.3); MCH 26.8 pg (25.7-33.7); MCHC 31.8 g/dl (32.0-36.0); MEAN CELL VOLUME 84.3 fl (80-96); MEAN PLT VOLUME 7.9 fl (7.5-11.1); PLATELET COUNT 222 10^3/uL (134-434); RBC 2.81 M/mm3 (3.60-5.2); RDW 19.3 % (11.6-15.6); WHITE BLOOD COUNT 8.4 K/mm3 (4.0-10.0)
[2023-09-21] MEDS ORDERED: PROPOFOL 60 ML ONE (13:05)
[2023-09-21 13:10] LABS: INR 1.59 (0.83-1.09); PROTHROMBIN TIME (PATIENT) 18.4 SEC (9.7-13.0)
[2023-09-21 13:36] LABS: HEMATOCRIT 26.2 % (32.4-45.2); HEMOGLOBIN 8.2 GM/dL (10.7-15.3); MCH 26.3 pg (25.7-33.7); MCHC 31.2 g/dl (32.0-36.0); MEAN CELL VOLUME 84.4 fl (80-96); MEAN PLT VOLUME 7.2 fl (7.5-11.1); PLATELET COUNT 229 10^3/uL (134-434); RDW 19.3 % (11.6-15.6)
[2023-09-21] MEDS ORDERED: CALCIUM CHLORIDE 1 GM/10 ML *DISP.SYRIN ONE (13:39)
[2023-09-21] MEDS ORDERED: ALBUTEROL SO4 HFA INHALER IH ONE (13:46)
[2023-09-21] MEDS: PIPERACILLIN/TAZOBACTAM 3.375 GM VIAL IVPB ONE (13:50)
[2023-09-21 13:51] LABS: INR 1.6 (0.83-1.09); PROTHROMBIN TIME (PATIENT) 18.5 SEC (9.7-13.0)
[2023-09-21 13:53] LABS: POTASSIUM 4.2 mmol/L (3.5-5.1)
[2023-09-21 13:54] LABS: ACTIVATED PTT 33.8 SECONDS (25.2-36.5)
[2023-09-21] MEDS ORDERED: FENTANYL CITRATE/PF 50 MCG/ML VIAL ONE (13:54)
[2023-09-21] MEDS ORDERED: ROCURONIUM BROMIDE 50 MG/5 ML SYRINGE ONE (13:54)
[2023-09-21 14:00] LABS: POTASSIUM 3.9 mmol/L (3.5-5.1)
[2023-09-21 14:03] LABS: ALBUMIN 1.3 g/dl (3.4-5.0); BLOOD UREA NITROGEN 23.2 mg/dL (7-18); CALCIUM 8.2 mg/dL (8.5-10.1)
[2023-09-21 14:07] LABS: BILIRUBIN,TOTAL 0.5 mg/dL (0.2-1); TOT PROT 6.7 g/dl (6.4-8.2)
[2023-09-21 14:08] LABS: ALBUMIN 1.3 g/dl (3.4-5.0); BLOOD UREA NITROGEN 23.3 mg/dL (7-18); MAGNESIUM 1.7 mg/dL (1.8-2.4)
[2023-09-21 14:11] LABS: CREATININE 0.9 mg/dL (0.55-1.3)
[2023-09-21 14:13] LABS: BILIRUBIN,TOTAL 0.7 mg/dL (0.2-1); PHOSPHOROUS 3.2 mg/dL (2.5-4.9); TOT PROT 6.3 g/dl (6.4-8.2)
[2023-09-21] MEDS: BUPIVACAINE HCL/PF 0.25% (2.5MG/ML) 10 ML VIAL IJ ONE (14:15)
[2023-09-21 14:27] LABS: ANISOCYTOSIS 2+; MACROCYTOSIS 0
[2023-09-21] MEDS ORDERED: SUGAMMADEX SODIUM 200 MG/2 ML VIAL ONE ×2 (14:36→15:12)
[2023-09-21] MEDS ORDERED: EPINEPHrine/PF 1 MG/1 ML (1:1,000) AMPULE ONE (14:53)
[2023-09-21] MEDS ORDERED: ALBUTEROL SO4 2.5/IPRATROPIUM 0.5 INH SOL 3 ML VIAL.NEB. NEB PRN ×2 (16:20→17:22)
[2023-09-21] MEDS ORDERED: guaiFENesin 200 MG/10 ML 10 ML UNIT-DOSE CUPS PO PRN ×2 (16:20→17:22)
[2023-09-21 17:18] LABS: ARTERIAL BLD GAS O2 SATURATION 99.6 % (95-98); ARTERIAL BLOOD GAS BASE EXCESS -0.5 mmol/L (-2-2); ARTERIAL BLOOD GAS PO2 280.3 mmHg (80-100); ARTERIAL BLOOD GAS pH 7.335 (7.350-7.450)
[2023-09-21 17:23] LABS: ALLENS TEST POSITIVE
[2023-09-21 17:24] LABS: VENT MODE SIMV/PS*10
[2023-09-21 17:25] LABS: VENT RATE 14
[2023-09-21] MEDS: SODIUM CHLORIDE 500 ML IV STA (17:30)
[2023-09-21] MEDS ORDERED: ACETAMINOPHEN 1000 MG/100 ML BAG IVPB SCH (18:00)
[2023-09-21] MEDS ORDERED: PIPERACILLIN/TAZOB 3.375 GM 3.375 GM in DEXTROSE 5%-WATER - 50 ML IVPB SCH (18:00)
[2023-09-21] MEDS: PIPERACILLIN/TAZOB 3.375 GM 3.375 GM in DEXTROSE 5%-WATER - 50 ML IVPB SCH (18:28)
[2023-09-21] MEDS: DEXTROSE 50%-WATER 25 GM/50 ML DISP.SYRIN IVPUSH ONE (18:45)
[2023-09-21] MEDS: ACETAMINOPHEN 1000 MG/100 ML BAG IVPB SCH (19:28)
[2023-09-21] MEDS: DEXTROSE 5%-LACTATED RINGERS 1,000 ML IV SCH ×2 (19:31→22:15)
[2023-09-21] MEDS: MAGNESIUM SULF 50% (8.12 MEQ/2 ML-1 GM VIAL) IVPB ONE (19:48)
[2023-09-21] MEDS: LACTATED RINGERS SOLUTION 1000 ML INFUS.BAG IV STA ×2 (19:49→22:14)
[2023-09-21 20:57] LABS: LACTIC ACID 3.6 mmol/L (0.4-2.0)
[2023-09-21] MEDS: CHLORHEXIDINE GLUCONATE 4% CLEANSER FOR DECOLONIZATION TP SCH (21:03)
[2023-09-21] MEDS: LIDOCAINE PATCH REMOVAL MC SCH ×2 (21:03→21:04)
[2023-09-21] MEDS: MUPIROCIN 2% TOPICAL OINTMENT FOR DECOLONIZATION NS SCH (21:03)
[2023-09-21 21:34] LABS: INR 1.57 (0.83-1.09); PROTHROMBIN TIME (PATIENT) 18.1 SEC (9.7-13.0)
[2023-09-21 21:36] LABS: BLOOD UREA NITROGEN 24.1 mg/dL (7-18); MAGNESIUM 1.6 mg/dL (1.8-2.4)
[2023-09-21 21:37] LABS: ACTIVATED PTT 28.9 SECONDS (25.2-36.5); ALBUMIN 1.2 g/dl (3.4-5.0)
[2023-09-21 21:39] LABS: PHOSPHOROUS 3.4 mg/dL (2.5-4.9)
[2023-09-21 21:42] LABS: BILIRUBIN,TOTAL 0.4 mg/dL (0.2-1)
[2023-09-21] MEDS ORDERED: CHLORHEXIDINE GLUCONATE 4% CLEANSER FOR DECOLONIZATION TP SCH ×2 (22:00)
[2023-09-21] MEDS ORDERED: METOPROLOL TARTRATE 25 MG TABLET (FP) PO SCH ×2 (22:00)
[2023-09-21] MEDS ORDERED: LIDOCAINE PATCH REMOVAL MC SCH ×2 (22:00)
[2023-09-21] MEDS ORDERED: MUPIROCIN 2% TOPICAL OINTMENT FOR DECOLONIZATION NS SCH ×2 (22:00)
[2023-09-21] MEDS: CALCIUM GLUCONATE IN NACL 1 GM/50 ML BAG IVPB ONE (22:14)
[2023-09-21] MEDS ORDERED: CALCIUM GLUCONATE IN NACL 1 GM/50 ML BAG IVPB ONE (22:15)
[2023-09-21] MEDS: CALCIUM GLUCONATE 10% - 1,000 MG/10 ML VIAL IVPB ONE (22:16)
[2023-09-21 22:17] LABS: HEMATOCRIT 19.8 % (32.4-45.2); MCH 26.4 pg (25.7-33.7); MCHC 31.4 g/dl (32.0-36.0); MEAN CELL VOLUME 84.1 fl (80-96); MEAN PLT VOLUME 6.8 fl (7.5-11.1); PLATELET COUNT 175 10^3/uL (134-434); RBC 2.35 M/mm3 (3.60-5.2); RDW 19.1 % (11.6-15.6); WHITE BLOOD COUNT 5.8 K/mm3 (4.0-10.0)
[2023-09-21 22:24] LABS: HEMOGLOBIN 6.2 GM/dL (10.7-15.3)
[2023-09-21] MEDS: PHENYLEPHRINE HCL 50,000 MCG in SODIUM CHLORIDE 500 ML IV SCH (22:57)
[2023-09-21 23:22] LABS: ANISOCYTOSIS 3+; MACROCYTOSIS 0
[2023-09-22 02:53] LABS: BASO % 0.3 % (0-2.0); EOS % 0.5 % (0-4.5); HEMATOCRIT 26.5 % (32.4-45.2); HEMOGLOBIN 8.4 GM/dL (10.7-15.3); MCH 26.4 pg (25.7-33.7); MCHC 31.8 g/dl (32.0-36.0); MEAN CELL VOLUME 83.1 fl (80-96); MEAN PLT VOLUME 7.8 fl (7.5-11.1); MONO % 6.5 % (3.8-10.2); NEUT % 76.7 % (42.8-82.8); PLATELET COUNT 243 10^3/uL (134-434); RBC 3.19 M/mm3 (3.60-5.2); WHITE BLOOD COUNT 11.2 K/mm3 (4.0-10.0)
[2023-09-22] MEDS: HYDROmorphone HCl 2 MG/ML VIAL IVPUSH PRN (06:05)
[2023-09-22 06:20] LABS: ARTERIAL BLOOD GAS BASE EXCESS 1.8 mmol/L (-2-2); ARTERIAL BLOOD GAS PO2 103.3 mmHg (80-100); ARTERIAL BLOOD GAS pH 7.448 (7.350-7.450)
[2023-09-22 06:23] LABS: VENT MODE A/C; VENT RATE 18
[2023-09-22] MEDS: LACTATED RINGERS SOLUTION 1,000 ML/1,000 ML INFUS.BAG IV SCH (08:31)
[2023-09-22] MEDS: ALBUMIN HUMAN 5% 250 ML IV SOLUTION IV ONE ×2 (08:31)
[2023-09-22] MEDS: MAGNESIUM SULFATE IN WATER 2 GM/50 ML IVPB IVPB ONE (08:32)
[2023-09-22] MEDS: FAMOTIDINE 20 MG TABLET PO SCH (09:19)
[2023-09-22] MEDS: LIDOCAINE 4% PATCH TP SCH (09:19)
[2023-09-22] MEDS ORDERED: LIDOCAINE 4% PATCH TP SCH (10:00)
[2023-09-22] MEDS ORDERED: FAMOTIDINE 20 MG TABLET PO SCH (10:00)
[2023-09-22 10:12] LABS: HEMATOCRIT 30.8 % (32.4-45.2); MCH 27.3 pg (25.7-33.7); MCHC 32.5 g/dl (32.0-36.0); MEAN CELL VOLUME 84.2 fl (80-96); MEAN PLT VOLUME 7.5 fl (7.5-11.1); PLATELET COUNT 234 10^3/uL (134-434); RBC 3.65 M/mm3 (3.60-5.2); RDW 17.7 % (11.6-15.6); WHITE BLOOD COUNT 10.2 K/mm3 (4.0-10.0)
[2023-09-22 10:34] LABS: ALBUMIN 1.3 g/dl (3.4-5.0); BLOOD UREA NITROGEN 23.1 mg/dL (7-18); MAGNESIUM 1.9 mg/dL (1.8-2.4)
[2023-09-22 10:36] LABS: CREATININE 1.1 mg/dL (0.55-1.3); PHOSPHOROUS 2.8 mg/dL (2.5-4.9)
[2023-09-22 10:38] LABS: BILIRUBIN,TOTAL 0.8 mg/dL (0.2-1); TOT PROT 5.6 g/dl (6.4-8.2)
[2023-09-22 10:51] LABS: ANISOCYTOSIS 0; MACROCYTOSIS 0
[2023-09-23 06:44] LABS: CALCIUM 7.7 mg/dL (8.5-10.1)
[2023-09-23 06:45] LABS: ALBUMIN 1.2 g/dl (3.4-5.0); BLOOD UREA NITROGEN 22.9 mg/dL (7-18); MAGNESIUM 1.8 mg/dL (1.8-2.4)
[2023-09-23 06:48] LABS: CREATININE 0.9 mg/dL (0.55-1.3); PHOSPHOROUS 3.3 mg/dL (2.5-4.9)
[2023-09-23 06:49] LABS: BILIRUBIN,TOTAL 0.4 mg/dL (0.2-1); TOT PROT 5.7 g/dl (6.4-8.2)
[2023-09-23 07:02] LABS: HEMATOCRIT 30.4 % (32.4-45.2); HEMOGLOBIN 9.8 GM/dL (10.7-15.3); MCH 27.4 pg (25.7-33.7); MCHC 32.4 g/dl (32.0-36.0); MEAN CELL VOLUME 84.6 fl (80-96); MEAN PLT VOLUME 7.5 fl (7.5-11.1); PLATELET COUNT 191 10^3/uL (134-434); RBC 3.59 M/mm3 (3.60-5.2); RDW 18.2 % (11.6-15.6); WHITE BLOOD COUNT 7.8 K/mm3 (4.0-10.0)
[2023-09-23] MEDS ORDERED: ACETAMINOPHEN 325 MG TABLET (FP) PO PRN (07:25)
[2023-09-23] MEDS: FUROSEMIDE 40 MG/4 ML INJECTABLE VIAL IVPUSH ONE (13:15)
[2023-09-23] MEDS: ACETAMINOPHEN 325 MG TABLET (FP) PO PRN (14:28)
[2023-09-24 07:16] LABS: HEMATOCRIT 35.9 % (32.4-45.2); HEMOGLOBIN 11.6 GM/dL (10.7-15.3); MCH 27.4 pg (25.7-33.7); MCHC 32.4 g/dl (32.0-36.0); MEAN CELL VOLUME 84.7 fl (80-96); MEAN PLT VOLUME 7.6 fl (7.5-11.1); PLATELET COUNT 246 10^3/uL (134-434); RBC 4.24 M/mm3 (3.60-5.2); RDW 17.9 % (11.6-15.6)
[2023-09-24 07:38] LABS: POTASSIUM 3.6 mmol/L (3.5-5.1)
[2023-09-24 07:48] LABS: ALBUMIN 1.4 g/dl (3.4-5.0); BLOOD UREA NITROGEN 19.5 mg/dL (7-18)
[2023-09-24 07:50] LABS: CALCIUM 8.1 mg/dL (8.5-10.1); PHOSPHOROUS 2.4 mg/dL (2.5-4.9)
[2023-09-24 07:52] LABS: BILIRUBIN,TOTAL 0.6 mg/dL (0.2-1); TOT PROT 6.3 g/dl (6.4-8.2)
[2023-09-24 07:53] LABS: MAGNESIUM 1.7 mg/dL (1.8-2.4)
[2023-09-24] MEDS ORDERED: FUROSEMIDE 40 MG/4 ML INJECTABLE VIAL IVPUSH ONE (08:57)
[2023-09-24] MEDS: POTASSIUM CHLORIDE ORAL LIQUID 20 MEQ/15 ML PO ONE (09:37)
[2023-09-24] MEDS: FUROSEMIDE 40 MG/4 ML INJECTABLE VIAL IVPUSH ONE (09:38)
[2023-09-24] MEDS: MAGNESIUM SULF 50% (8.12 MEQ/2 ML-1 GM VIAL) IVPB ONE (15:59)
[2023-09-24] MEDS: NAPH,MB-DB/K PH,MBDB POWDER PACKET PO ONE (15:59)
[2023-09-25 06:45] LABS: HEMOGLOBIN 11.1 GM/dL (10.7-15.3); MCH 27.5 pg (25.7-33.7); MCHC 32.5 g/dl (32.0-36.0); MEAN CELL VOLUME 84.7 fl (80-96); MEAN PLT VOLUME 7.5 fl (7.5-11.1); PLATELET COUNT 234 10^3/uL (134-434); RBC 4.02 M/mm3 (3.60-5.2); WHITE BLOOD COUNT 7.8 K/mm3 (4.0-10.0)
[2023-09-25 07:05] LABS: POTASSIUM 3.6 mmol/L (3.5-5.1)
[2023-09-25 07:08] LABS: BLOOD UREA NITROGEN 19.8 mg/dL (7-18); CALCIUM 7.9 mg/dL (8.5-10.1); MAGNESIUM 2.1 mg/dL (1.8-2.4)
[2023-09-25 07:09] LABS: ALBUMIN 1.3 g/dl (3.4-5.0)
[2023-09-25 07:11] LABS: CREATININE 0.8 mg/dL (0.55-1.3); PHOSPHOROUS 2.2 mg/dL (2.5-4.9)
[2023-09-25 07:13] LABS: BILIRUBIN,TOTAL 0.8 mg/dL (0.2-1); TOT PROT 6.5 g/dl (6.4-8.2)
[2023-09-25 09:12] LABS: ANISOCYTOSIS 0; MACROCYTOSIS 0
[2023-09-25] MEDS ORDERED: FUROSEMIDE 40 MG/4 ML INJECTABLE VIAL IVPUSH SCH (10:00)
[2023-09-25] MEDS: POTASSIUM CHLORIDE ORAL LIQUID 20 MEQ/15 ML PO ONE (10:09)
[2023-09-25] MEDS: MAGNESIUM 2GM/50ML STERILE WATER IVPB IVPB ONE (10:10)
[2023-09-25] MEDS: ALBUMIN HUMAN 25% 12.5 GM/50 ML VIAL IV SCH (10:10)
[2023-09-25] MEDS ORDERED: FUROSEMIDE 40 MG/4 ML INJECTABLE VIAL ONE (12:37)
[2023-09-25] MEDS: FUROSEMIDE 40 MG/4 ML INJECTABLE VIAL IVPUSH ONE (12:41)
[2023-09-26 07:10] LABS: BASO % 0.3 % (0-2.0); EOS % 0.5 % (0-4.5); HEMATOCRIT 28.7 % (32.4-45.2); HEMOGLOBIN 9.2 GM/dL (10.7-15.3); MCH 27.5 pg (25.7-33.7); MCHC 32.2 g/dl (32.0-36.0); MEAN CELL VOLUME 85.4 fl (80-96); MEAN PLT VOLUME 7.7 fl (7.5-11.1); MONO % 7.8 % (3.8-10.2); NEUT % 77.4 % (42.8-82.8); PLATELET COUNT 240 10^3/uL (134-434); RBC 3.36 M/mm3 (3.60-5.2); RDW 18.4 % (11.6-15.6); WHITE BLOOD COUNT 7.1 K/mm3 (4.0-10.0)
[2023-09-26 07:31] LABS: POTASSIUM 3.9 mmol/L (3.5-5.1)
[2023-09-26 07:34] LABS: CALCIUM 7.9 mg/dL (8.5-10.1)
[2023-09-26 07:35] LABS: BLOOD UREA NITROGEN 20.2 mg/dL (7-18); MAGNESIUM 2.2 mg/dL (1.8-2.4)
[2023-09-26 07:38] LABS: CREATININE 0.8 mg/dL (0.55-1.3); PHOSPHOROUS 2.3 mg/dL (2.5-4.9)
[2023-09-26] MEDS: NAPH,MB-DB/K PH,MBDB POWDER PACKET PO SCH (10:07)
[2023-09-26] MEDS: FUROSEMIDE 40 MG/4 ML INJECTABLE VIAL IVPUSH SCH (10:09)
[2023-09-26] MEDS: ALBUMIN HUMAN 25% 100 ML VIAL IV ONE (10:50)
[2023-09-26] MEDS: FUROSEMIDE 40 MG/4 ML INJECTABLE VIAL IVPUSH ONE (17:17)
[2023-09-27 07:01] LABS: BASO % 0.4 % (0-2.0); EOS % 0.6 % (0-4.5); HEMATOCRIT 27.8 % (32.4-45.2); LYMPH % 15.6 % (8-40); MCH 27.6 pg (25.7-33.7); MCHC 32.2 g/dl (32.0-36.0); MEAN CELL VOLUME 85.8 fl (80-96); MEAN PLT VOLUME 7.4 fl (7.5-11.1); MONO % 6.3 % (3.8-10.2); NEUT % 77.1 % (42.8-82.8); PLATELET COUNT 227 10^3/uL (134-434); RBC 3.24 M/mm3 (3.60-5.2); RDW 18.4 % (11.6-15.6); WHITE BLOOD COUNT 5.9 K/mm3 (4.0-10.0)
[2023-09-27 07:16] LABS: POTASSIUM 3.6 mmol/L (3.5-5.1)
[2023-09-27 07:21] LABS: BLOOD UREA NITROGEN 16.2 mg/dL (7-18); CALCIUM 7.8 mg/dL (8.5-10.1); MAGNESIUM 1.7 mg/dL (1.8-2.4)
[2023-09-27 07:24] LABS: CREATININE 0.8 mg/dL (0.55-1.3)
[2023-09-27] MEDS: MAGNESIUM SULFATE IN WATER 2 GM/50 ML IVPB IVPB ONE ×2 (11:42→19:22)
[2023-09-27] MEDS: POLYETHYLENE GLYCOL (HEALTHYLAX) 3350 17 GM PACKET PO SCH (11:42)
[2023-09-27] MEDS: FUROSEMIDE 40 MG/4 ML INJECTABLE VIAL IVPUSH ONE (19:21)
[2023-09-27] MEDS: SENNOSIDES/DOCUSATE COMBO (SENNA PLUS) TABLET (UD) PO SCH (21:05)
[2023-09-28] MEDS: MELATONIN 5 MG TABLETS PO ONE ×2 (01:32→21:33)
[2023-09-28 06:49] LABS: POTASSIUM 3.4 mmol/L (3.5-5.1)
[2023-09-28 06:54] LABS: BLOOD UREA NITROGEN 14.6 mg/dL (7-18)
[2023-09-28 06:55] LABS: MAGNESIUM 2.1 mg/dL (1.8-2.4)
[2023-09-28 06:55] LABS: BASO % 0.3 % (0-2.0); EOS % 0.3 % (0-4.5); HEMATOCRIT 25.1 % (32.4-45.2); HEMOGLOBIN 8.3 GM/dL (10.7-15.3); LYMPH % 14.9 % (8-40); MCH 28.1 pg (25.7-33.7); MEAN CELL VOLUME 85.1 fl (80-96); MEAN PLT VOLUME 7.1 fl (7.5-11.1); MONO % 7.7 % (3.8-10.2); NEUT % 76.8 % (42.8-82.8); PLATELET COUNT 238 10^3/uL (134-434); RBC 2.94 M/mm3 (3.60-5.2); RDW 18.3 % (11.6-15.6); WHITE BLOOD COUNT 5.6 K/mm3 (4.0-10.0)
[2023-09-28 06:57] LABS: CREATININE 0.6 mg/dL (0.55-1.3)
[2023-09-28 06:58] LABS: PHOSPHOROUS 1.7 mg/dL (2.5-4.9)
[2023-09-28 07:00] LABS: BILIRUBIN,DIRECT 0.4 mg/dL (0.0-0.2)
[2023-09-28 07:03] LABS: BILIRUBIN,TOTAL 0.9 mg/dL (0.2-1); TOT PROT 6.2 g/dl (6.4-8.2)
[2023-09-28 07:04] LABS: ALBUMIN 1.8 g/dl (3.4-5.0)
[2023-09-28] MEDS: NAPH,MB-DB/K PH,MBDB POWDER PACKET PO SCH (10:02)
[2023-09-28] MEDS ORDERED: ALBUTEROL SO4 2.5/IPRATROPIUM 0.5 INH SOL 3 ML VIAL.NEB. NEB PRN (16:01)
[2023-09-28] MEDS: AMINO ACIDS/PROTEIN HYDROLYS 30 ML LIQUID.PKT PO SCH (18:13)
[2023-09-28] MEDS ORDERED: ACETAMINOPHEN 325 MG TABLET (FP) ONE (21:19)
[2023-09-28] MEDS: ACETAMINOPHEN 325 MG TABLET (FP) PO PRN (21:33)
[2023-09-28] MEDS: CHLORHEXIDINE GLUCONATE 4% CLEANSER FOR DECOLONIZATION TP SCH (21:33)
[2023-09-28] MEDS: LIDOCAINE PATCH REMOVAL MC SCH (21:33)
[2023-09-28] MEDS ORDERED: LIDOCAINE PATCH REMOVAL MC SCH (22:00)
[2023-09-29 07:22] LABS: HEMATOCRIT 25.6 % (32.4-45.2); HEMOGLOBIN 8.4 GM/dL (10.7-15.3); MEAN PLT VOLUME 7.2 fl (7.5-11.1); PLATELET COUNT 242 10^3/uL (134-434); RBC 3.01 M/mm3 (3.60-5.2); RDW 18.4 % (11.6-15.6); WHITE BLOOD COUNT 5.9 K/mm3 (4.0-10.0)
[2023-09-29 07:53] LABS: POTASSIUM 3.6 mmol/L (3.5-5.1)
[2023-09-29 07:58] LABS: CALCIUM 8.2 mg/dL (8.5-10.1)
[2023-09-29 07:59] LABS: ALBUMIN 1.7 g/dl (3.4-5.0); BLOOD UREA NITROGEN 16.8 mg/dL (7-18); MAGNESIUM 1.9 mg/dL (1.8-2.4)
[2023-09-29 08:01] LABS: CREATININE 0.6 mg/dL (0.55-1.3)
[2023-09-29 08:02] LABS: PHOSPHOROUS 2.4 mg/dL (2.5-4.9)
[2023-09-29 08:03] LABS: BILIRUBIN,TOTAL 0.8 mg/dL (0.2-1); TOT PROT 6.3 g/dl (6.4-8.2)
[2023-09-29] MEDS: LIDOCAINE 4% PATCH TP SCH (09:49)
[2023-09-29] MEDS: FAMOTIDINE 20 MG TABLET PO SCH (09:50)
[2023-09-29] MEDS: MULTIVITAMINS (DAILY MVI) TABLET (FP) PO SCH (09:51)
[2023-09-29] MEDS: AMINO ACIDS 4.25%/D5W 1,000 ML IV SCH (14:27)
[2023-09-29 19:17] LABS: EPI CELLS 29 /uL (0-25.1); HYALINE CASTS 1 /uL (0-3.1); URINE APPEARANCE CLEAR; URINE BACTERIA 8 /uL (0-1359); URINE BILIRUBIN NEGATIVE (NEGATIVE); URINE COLOR YELLOW; URINE GLUCOSE (UA) NEGATIVE (NEGATIVE); URINE KETONE NEGATIVE (NEGATIVE); URINE LEUK ESTERASE NEGATIVE (NEGATIVE); URINE NITRITE NEGATIVE (NEGATIVE); URINE PROTEIN 2+ (NEGATIVE); URINE RBC 60 /uL (0-23.9); URINE UROBILINOGEN >=8.0 E.U./dl mg/dL (0.2-1.0); URINE WBC 19 /uL (0-25.8)
[2023-09-29] MEDS: HEPARIN NA (PORCINE) 5,000 UNITS/ML 1ML VIAL SQ SCH (21:18)
[2023-09-29] MEDS: HYDROmorphone HCl 2 MG/ML VIAL IVPUSH PRN (21:19)
[2023-09-29] MEDS: MELATONIN 5 MG TABLETS PO SCH (21:19)
[2023-09-30 07:30] LABS: BASO % 0.3 % (0-2.0); EOS % 0.2 % (0-4.5); HEMATOCRIT 24.6 % (32.4-45.2); HEMOGLOBIN 8.1 GM/dL (10.7-15.3); LYMPH % 12.3 % (8-40); MCH 28.1 pg (25.7-33.7); MCHC 32.9 g/dl (32.0-36.0); MEAN CELL VOLUME 85.5 fl (80-96); MEAN PLT VOLUME 7.3 fl (7.5-11.1); NEUT % 80.2 % (42.8-82.8); PLATELET COUNT 277 10^3/uL (134-434); RBC 2.87 M/mm3 (3.60-5.2); RDW 18.6 % (11.6-15.6); WHITE BLOOD COUNT 7.6 K/mm3 (4.0-10.0)
[2023-09-30 07:35] LABS: POTASSIUM 3.7 mmol/L (3.5-5.1)
[2023-09-30 07:48] LABS: ALBUMIN 1.6 g/dl (3.4-5.0); CALCIUM 8.1 mg/dL (8.5-10.1); MAGNESIUM 1.8 mg/dL (1.8-2.4)
[2023-09-30 07:51] LABS: CREATININE 0.6 mg/dL (0.55-1.3); PHOSPHOROUS 2.8 mg/dL (2.5-4.9)
[2023-09-30 07:53] LABS: TOT PROT 6.4 g/dl (6.4-8.2)
[2023-09-30 07:55] LABS: BILIRUBIN,TOTAL 0.7 mg/dL (0.2-1)
[2023-09-30] MEDS: ACETAMINOPHEN 325 MG TABLET (FP) PO PRN (16:49)
[2023-09-30] MEDS: ACETAMINOPHEN 500 MG TABLET (FP) PO PRN (22:42)
[2023-10-01 07:16] LABS: BASO % 0.4 % (0-2.0); EOS % 0.2 % (0-4.5); HEMATOCRIT 27.6 % (32.4-45.2); LYMPH % 12.6 % (8-40); MCH 27.7 pg (25.7-33.7); MCHC 32.6 g/dl (32.0-36.0); MEAN CELL VOLUME 85.2 fl (80-96); MEAN PLT VOLUME 7.4 fl (7.5-11.1); NEUT % 78.8 % (42.8-82.8); PLATELET COUNT 296 10^3/uL (134-434); RBC 3.23 M/mm3 (3.60-5.2); RDW 18.3 % (11.6-15.6); WHITE BLOOD COUNT 8.4 K/mm3 (4.0-10.0)
[2023-10-01 07:33] LABS: POTASSIUM 4.1 mmol/L (3.5-5.1)
[2023-10-01 07:39] LABS: ALBUMIN 1.7 g/dl (3.4-5.0); BLOOD UREA NITROGEN 27.2 mg/dL (7-18); MAGNESIUM 1.8 mg/dL (1.8-2.4)
[2023-10-01 07:42] LABS: CREATININE 0.5 mg/dL (0.55-1.3); PHOSPHOROUS 2.6 mg/dL (2.5-4.9)
[2023-10-01 07:43] LABS: BILIRUBIN,TOTAL 0.7 mg/dL (0.2-1); TOT PROT 6.8 g/dl (6.4-8.2)
[2023-10-01] MEDS ORDERED: IOHEXOL (OMNIPAQUE PO) 12 MG/ML - 500 ML BOTTLE PO ONE (14:26)
[2023-10-01] MEDS: MIRTAZAPINE 15 MG TABLET (FP) PO SCH (21:17)
[2023-10-02 06:36] LABS: BASO % 0.5 % (0-2.0); EOS % 0.3 % (0-4.5); HEMATOCRIT 23.5 % (32.4-45.2); HEMOGLOBIN 7.7 GM/dL (10.7-15.3); LYMPH % 9.5 % (8-40); MCH 27.8 pg (25.7-33.7); MCHC 32.7 g/dl (32.0-36.0); MEAN PLT VOLUME 7.3 fl (7.5-11.1); MONO % 6.9 % (3.8-10.2); NEUT % 82.8 % (42.8-82.8); PLATELET COUNT 281 10^3/uL (134-434); RBC 2.76 M/mm3 (3.60-5.2); RDW 18.2 % (11.6-15.6); WHITE BLOOD COUNT 8.1 K/mm3 (4.0-10.0)
[2023-10-02 07:10] LABS: POTASSIUM 4.2 mmol/L (3.5-5.1)
[2023-10-02 07:14] LABS: CALCIUM 8.1 mg/dL (8.5-10.1)
[2023-10-02 07:15] LABS: BLOOD UREA NITROGEN 26.2 mg/dL (7-18)
[2023-10-02 07:16] LABS: ALBUMIN 1.5 g/dl (3.4-5.0)
[2023-10-02 07:19] LABS: CREATININE 0.6 mg/dL (0.55-1.3)
[2023-10-02 07:20] LABS: BILIRUBIN,TOTAL 0.5 mg/dL (0.2-1); TOT PROT 6.5 g/dl (6.4-8.2)
[2023-10-02 09:49] LABS: HEMATOCRIT 16.1 % (32.4-45.2); MCH 28.3 pg (25.7-33.7); MCHC 33.2 g/dl (32.0-36.0); MEAN CELL VOLUME 85.3 fl (80-96); MEAN PLT VOLUME 7.1 fl (7.5-11.1); PLATELET COUNT 364 10^3/uL (134-434); RBC 1.89 M/mm3 (3.60-5.2); RDW 18.2 % (11.6-15.6)
[2023-10-02 09:59] LABS: HEMOGLOBIN 5.3 GM/dL (10.7-15.3)
[2023-10-02 10:37] LABS: HEMATOCRIT 27.8 % (32.4-45.2); HEMOGLOBIN 9.1 GM/dL (10.7-15.3); MCHC 32.7 g/dl (32.0-36.0); MEAN CELL VOLUME 85.7 fl (80-96); MEAN PLT VOLUME 7.2 fl (7.5-11.1); PLATELET COUNT 296 10^3/uL (134-434); RBC 3.25 M/mm3 (3.60-5.2); RDW 18.5 % (11.6-15.6)
[2023-10-02 15:42] LABS: BASO % 0.1 % (0-2.0); EOS % 0.2 % (0-4.5); HEMATOCRIT 25.3 % (32.4-45.2); HEMOGLOBIN 8.2 GM/dL (10.7-15.3); LYMPH % 8.9 % (8-40); MCH 27.7 pg (25.7-33.7); MCHC 32.6 g/dl (32.0-36.0); MEAN PLT VOLUME 7.4 fl (7.5-11.1); MONO % 8.1 % (3.8-10.2); NEUT % 82.7 % (42.8-82.8); PLATELET COUNT 297 10^3/uL (134-434); RBC 2.97 M/mm3 (3.60-5.2); RDW 18.5 % (11.6-15.6); WHITE BLOOD COUNT 7.6 K/mm3 (4.0-10.0)
[2023-10-03 07:37] LABS: HEMATOCRIT 19.9 % (32.4-45.2); MCH 28.1 pg (25.7-33.7); MCHC 32.4 g/dl (32.0-36.0); MEAN CELL VOLUME 86.5 fl (80-96); MEAN PLT VOLUME 7.6 fl (7.5-11.1); PLATELET COUNT 365 10^3/uL (134-434); RBC 2.31 M/mm3 (3.60-5.2); RDW 19.1 % (11.6-15.6); WHITE BLOOD COUNT 8.4 K/mm3 (4.0-10.0)
[2023-10-03 08:12] LABS: POTASSIUM 4.1 mmol/L (3.5-5.1)
[2023-10-03 08:19] LABS: CALCIUM 8.1 mg/dL (8.5-10.1)
[2023-10-03 08:20] LABS: ALBUMIN 1.5 g/dl (3.4-5.0); BLOOD UREA NITROGEN 28.2 mg/dL (7-18)
[2023-10-03 08:23] LABS: CREATININE 0.6 mg/dL (0.55-1.3); HEMOGLOBIN 6.5 GM/dL (10.7-15.3)
[2023-10-03 08:25] LABS: BILIRUBIN,TOTAL 0.5 mg/dL (0.2-1); TOT PROT 6.5 g/dl (6.4-8.2)
[2023-10-03 10:25] LABS: HEMATOCRIT 22.8 % (32.4-45.2); HEMOGLOBIN 7.4 GM/dL (10.7-15.3); MCH 27.8 pg (25.7-33.7); MCHC 32.5 g/dl (32.0-36.0); MEAN CELL VOLUME 85.6 fl (80-96); MEAN PLT VOLUME 7.7 fl (7.5-11.1); RBC 2.66 M/mm3 (3.60-5.2); RDW 18.7 % (11.6-15.6); WHITE BLOOD COUNT 7.8 K/mm3 (4.0-10.0)
[2023-10-03 10:36] LABS: ANISOCYTOSIS 1+; MACROCYTOSIS 0
[2023-10-03 13:20] LABS: PLATELET COUNT 307 10^3/uL (134-434)
[2023-10-03] MEDS: PIPERACILLIN/TAZOB 3.375 GM 3.375 GM in DEXTROSE 5%-WATER - 50 ML IVPB SCH (21:30)
[2023-10-03] MEDS: VANCOMYCIN/WATER FOR INJ (PEG) 1,000 MG/200 ML BAG IVPB ONE (21:30)
[2023-10-03] MEDS: guaiFENesin 200 MG/10 ML 10 ML UNIT-DOSE CUPS PO PRN (21:31)
[2023-10-03 21:38] LABS: EPI CELLS >36 /uL (0-25.1); HYALINE CASTS 1 /uL (0-3.1); PH,URINE 6.5 (5.0-8.0); URINE APPEARANCE CLEAR; URINE BACTERIA 8 /uL (0-1359); URINE BILIRUBIN NEGATIVE (NEGATIVE); URINE COLOR YELLOW; URINE GLUCOSE (UA) NEGATIVE (NEGATIVE); URINE KETONE NEGATIVE (NEGATIVE); URINE LEUK ESTERASE NEGATIVE (NEGATIVE); URINE NITRITE NEGATIVE (NEGATIVE); URINE PROTEIN 2+ (NEGATIVE); URINE UROBILINOGEN >=8.0 E.U./dl mg/dL (0.2-1.0); URINE WBC 29 /uL (0-25.8)
[2023-10-03 22:07] LABS: URINE RBC 52.1 /uL (0-23.9)
[2023-10-03] MEDS: ACETAMINOPHEN 1000 MG/100 ML BAG IVPB ONE (23:43)
[2023-10-04 00:05] LABS: ARTERIAL BLD GAS O2 SATURATION 41.1 % (95-98); ARTERIAL BLOOD GAS BASE EXCESS 10.2 mmol/L (-2-2); ARTERIAL BLOOD GAS pH 7.438 (7.350-7.450)
[2023-10-04 00:09] LABS: ALLENS TEST POSITIVE
[2023-10-04 00:18] LABS: ARTERIAL BLOOD GAS PO2 23.1 mmHg (80-100)
[2023-10-04 01:16] LABS: ARTERIAL BLD GAS O2 SATURATION 99.1 % (95-98); ARTERIAL BLOOD GAS BASE EXCESS 6.5 mmol/L (-2-2); ARTERIAL BLOOD GAS PO2 146.7 mmHg (80-100); ARTERIAL BLOOD GAS pH 7.509 (7.350-7.450)
[2023-10-04 01:17] LABS: ALLENS TEST POSITIVE
[2023-10-04] MEDS: SODIUM CHLORIDE 500 ML IV STA (02:15)
[2023-10-04] MEDS: FUROSEMIDE 40 MG TABLET (FP) PO SCH (10:39)
[2023-10-04 12:10] LABS: BASO % 0.4 % (0-2.0); EOS % 0.6 % (0-4.5); LYMPH % 5.5 % (8-40); MCH 28.2 pg (25.7-33.7); MCHC 32.6 g/dl (32.0-36.0); MEAN CELL VOLUME 86.5 fl (80-96); MEAN PLT VOLUME 7.5 fl (7.5-11.1); MONO % 5.1 % (3.8-10.2); NEUT % 88.4 % (42.8-82.8); PLATELET COUNT 241 10^3/uL (134-434); RBC 2.31 M/mm3 (3.60-5.2); RDW 18.9 % (11.6-15.6); WHITE BLOOD COUNT 9.6 K/mm3 (4.0-10.0)
[2023-10-04 12:12] LABS: HEMOGLOBIN 6.5 GM/dL (10.7-15.3)
[2023-10-04] MEDS: SODIUM CHLORIDE 1,000 ML IV STA (12:26)
[2023-10-04] MEDS: NOREPINEPHRINE BITARTRATE 4,000 MCG in DEXTROSE 5%-WATER - 496 ML IV SCH ×2 (12:27→15:29)
[2023-10-04 12:38] LABS: POTASSIUM 3.8 mmol/L (3.5-5.1)
[2023-10-04 12:40] LABS: ALBUMIN 1.3 g/dl (3.4-5.0); BLOOD UREA NITROGEN 42.4 mg/dL (7-18); CALCIUM 7.7 mg/dL (8.5-10.1)
[2023-10-04 12:44] LABS: CREATININE 1.1 mg/dL (0.55-1.3)
[2023-10-04 12:45] LABS: BILIRUBIN,TOTAL 0.5 mg/dL (0.2-1); TOT PROT 5.9 g/dl (6.4-8.2)
[2023-10-04] MEDS ORDERED: NOREPINEPHRINE BITARTRATE 4 MG/4 ML ML IV ONE (12:53)
[2023-10-04] MEDS ORDERED: ACETAMINOPHEN 500 MG TABLET (FP) PO PRN (15:14)
[2023-10-04] MEDS ORDERED: guaiFENesin 200 MG/10 ML 10 ML UNIT-DOSE CUPS PO PRN (15:14)
[2023-10-04] MEDS: SODIUM CHLORIDE 1,000 ML IV SCH (15:28)
[2023-10-04] MEDS: NOREPINEPHRINE 0.9 % NACL 8 MG/250 ML BAG IVPB SCH (16:00)
[2023-10-04 16:15] VITALS: BMI 22.3
[2023-10-04] MEDS: PIPERACILLIN/TAZOB 3.375 GM 3.375 GM in DEXTROSE 5%-WATER - 50 ML IVPB SCH (16:16)
[2023-10-04] MEDS: AMINO ACIDS/PROTEIN HYDROLYS 30 ML LIQUID.PKT PO SCH (19:25)
[2023-10-04 20:38] LABS: ARTERIAL BLD GAS O2 SATURATION 99.7 % (95-98); ARTERIAL BLOOD GAS BASE EXCESS 5.2 mmol/L (-2-2); ARTERIAL BLOOD GAS PO2 302.2 mmHg (80-100); ARTERIAL BLOOD GAS pH 7.461 (7.350-7.450)
[2023-10-04] MEDS: DEXMEDETOMIDINE PREMIX 400 MCG/100 ML BAG IVPB SCH (21:00)
[2023-10-04] MEDS ORDERED: PIPERACILLIN/TAZOB 3.375 GM 3.375 GM in DEXTROSE 5%-WATER - 50 ML IVPB SCH (21:00)
[2023-10-04] MEDS: CHLORHEXIDINE GLUCONATE 4% CLEANSER FOR DECOLONIZATION TP SCH (22:21)
[2023-10-04] MEDS: MELATONIN 5 MG TABLETS PO SCH (22:21)
[2023-10-04] MEDS: MUPIROCIN 2% TOPICAL OINTMENT FOR DECOLONIZATION NS SCH (22:21)
[2023-10-04] MEDS: NAPH,MB-DB/K PH,MBDB POWDER PACKET PO SCH (22:21)
[2023-10-04] MEDS: LIDOCAINE PATCH REMOVAL MC SCH (22:21)
[2023-10-04] MEDS: MIRTAZAPINE 15 MG TABLET (FP) PO SCH (22:21)
[2023-10-04 23:20] LABS: HEMATOCRIT 23.8 % (32.4-45.2); HEMOGLOBIN 7.7 GM/dL (10.7-15.3); MCH 27.9 pg (25.7-33.7); MCHC 32.4 g/dl (32.0-36.0); MEAN CELL VOLUME 85.9 fl (80-96); MEAN PLT VOLUME 7.6 fl (7.5-11.1); PLATELET COUNT 310 10^3/uL (134-434); RBC 2.77 M/mm3 (3.60-5.2); RDW 17.8 % (11.6-15.6); WHITE BLOOD COUNT 12.2 K/mm3 (4.0-10.0)
[2023-10-05 07:44] LABS: BASO % 0.9 % (0-2.0); HEMATOCRIT 25.2 % (32.4-45.2); HEMOGLOBIN 8.1 GM/dL (10.7-15.3); MCH 27.7 pg (25.7-33.7); MCHC 32.3 g/dl (32.0-36.0); MEAN CELL VOLUME 85.9 fl (80-96); MEAN PLT VOLUME 7.3 fl (7.5-11.1); MONO % 5.7 % (3.8-10.2); NEUT % 85.4 % (42.8-82.8); PLATELET COUNT 341 10^3/uL (134-434); RBC 2.93 M/mm3 (3.60-5.2); RDW 17.8 % (11.6-15.6); WHITE BLOOD COUNT 12.8 K/mm3 (4.0-10.0)
[2023-10-05 07:56] LABS: POTASSIUM 4.2 mmol/L (3.5-5.1)
[2023-10-05 08:04] LABS: ALBUMIN 1.3 g/dl (3.4-5.0); BLOOD UREA NITROGEN 54.7 mg/dL (7-18); PHOSPHOROUS 4.7 mg/dL (2.5-4.9)
[2023-10-05 08:05] LABS: BILIRUBIN,TOTAL 0.6 mg/dL (0.2-1); TOT PROT 6.1 g/dl (6.4-8.2)
[2023-10-05 08:06] LABS: CALCIUM 7.5 mg/dL (8.5-10.1)
[2023-10-05 08:07] LABS: CREATININE 1.7 mg/dL (0.55-1.3); MAGNESIUM 1.6 mg/dL (1.8-2.4)
[2023-10-05] MEDS: MAGNESIUM SULF 50% (8.12 MEQ/2 ML-1 GM VIAL) IVPB ONE (09:32)
[2023-10-05] MEDS: MULTIVITAMINS (DAILY MVI) TABLET (FP) PO SCH (09:32)
[2023-10-05] MEDS: FAMOTIDINE 20 MG TABLET PO SCH (09:32)
[2023-10-05] MEDS ORDERED: FUROSEMIDE 40 MG TABLET (FP) PO SCH (10:00)
[2023-10-05] MEDS: LIDOCAINE 4% PATCH TP SCH (10:41)
[2023-10-05] MEDS: AMINO ACIDS 4.25%/D5W 1,000 ML IV SCH (11:50)
[2023-10-05] MEDS ORDERED: ACETAMINOPHEN 1000 MG/100 ML BAG IVPB PRN (13:19)
[2023-10-05] MEDS: ACETAMINOPHEN 1000 MG/100 ML BAG IVPB PRN (13:39)
[2023-10-05 14:05] LABS: EPI CELLS 19 /uL (0-25.1); HYALINE CASTS 1 /uL (0-3.1); URINE APPEARANCE TURBID; URINE BILIRUBIN NEGATIVE (NEGATIVE); URINE COLOR DK YELLOW; URINE GLUCOSE (UA) NEGATIVE (NEGATIVE); URINE KETONE NEGATIVE (NEGATIVE); URINE LEUK ESTERASE 2+ (NEGATIVE); URINE NITRITE NEGATIVE (NEGATIVE); URINE PROTEIN 1+ (NEGATIVE); URINE RBC 48 /uL (0-23.9); URINE WBC 612 /uL (0-25.8)
[2023-10-05 14:11] LABS: URINE UREA NITROGEN 263 mg/dL (350-1000)
[2023-10-05] MEDS: DEXMEDETOMIDINE PREMIX 400 MCG/100 ML BAG IVPB SCH (23:00)
[2023-10-06 07:09] LABS: BASO % 0.3 % (0-2.0); EOS % 1.4 % (0-4.5); HEMATOCRIT 25.1 % (32.4-45.2); HEMOGLOBIN 8.2 GM/dL (10.7-15.3); LYMPH % 7.7 % (8-40); MCHC 32.8 g/dl (32.0-36.0); MEAN CELL VOLUME 85.4 fl (80-96); MEAN PLT VOLUME 7.5 fl (7.5-11.1); MONO % 5.2 % (3.8-10.2); NEUT % 85.4 % (42.8-82.8); PLATELET COUNT 300 10^3/uL (134-434); RBC 2.94 M/mm3 (3.60-5.2); WHITE BLOOD COUNT 10.8 K/mm3 (4.0-10.0)
[2023-10-06 07:37] LABS: CALCIUM 7.7 mg/dL (8.5-10.1)
[2023-10-06 07:38] LABS: ALBUMIN 1.2 g/dl (3.4-5.0); MAGNESIUM 2.2 mg/dL (1.8-2.4)
[2023-10-06 07:41] LABS: CREATININE 2.2 mg/dL (0.55-1.3); PHOSPHOROUS 5.2 mg/dL (2.5-4.9)
[2023-10-06 07:42] LABS: BILIRUBIN,TOTAL 0.6 mg/dL (0.2-1); TOT PROT 5.9 g/dl (6.4-8.2)
[2023-10-06] MEDS ORDERED: PIPERACILLIN/TAZOBACTAM 2.25 GM VIAL IVPB ONE (09:58)
[2023-10-06] MEDS: PANTOPRAZOLE SODIUM 40 MG VIAL IVPUSH SCH (09:59)
[2023-10-06] MEDS: PIPERACILLIN/TAZOB 2.25 GM 2.25 GM in DEXTROSE 5%-WATER - 50 ML IVPB SCH (09:59)
[2023-10-06] MEDS ORDERED: PIPERACILLIN/TAZOB 3.375 GM 2.25 GM in DEXTROSE 5%-WATER - 50 ML IVPB SCH (10:00)
[2023-10-06] MEDS: SODIUM CHLORIDE 1,000 ML IV SCH (12:00)
[2023-10-07 06:34] LABS: HEMATOCRIT 20.9 % (32.4-45.2); MCH 28.7 pg (25.7-33.7); MCHC 33.7 g/dl (32.0-36.0); MEAN CELL VOLUME 85.2 fl (80-96); MEAN PLT VOLUME 7.7 fl (7.5-11.1); PLATELET COUNT 165 10^3/uL (134-434); RBC 2.45 M/mm3 (3.60-5.2); RDW 17.7 % (11.6-15.6); WHITE BLOOD COUNT 9.4 K/mm3 (4.0-10.0)
[2023-10-07 06:50] LABS: POTASSIUM 3.8 mmol/L (3.5-5.1)
[2023-10-07 06:52] LABS: CALCIUM 7.5 mg/dL (8.5-10.1)
[2023-10-07 06:53] LABS: ALBUMIN 1.3 g/dl (3.4-5.0); BLOOD UREA NITROGEN 80.3 mg/dL (7-18); MAGNESIUM 1.9 mg/dL (1.8-2.4)
[2023-10-07 06:56] LABS: CREATININE 2.6 mg/dL (0.55-1.3)
[2023-10-07 06:57] LABS: BILIRUBIN,TOTAL 0.4 mg/dL (0.2-1); TOT PROT 6.1 g/dl (6.4-8.2)
[2023-10-07 08:39] LABS: ANISOCYTOSIS 2+; MACROCYTOSIS 0
[2023-10-07 09:17] LABS: RETICULOCYTES 1.33 % (0.5-1.5)
[2023-10-07] MEDS: FUROSEMIDE 40 MG/4 ML INJECTABLE VIAL IVPUSH ONE (10:33)
[2023-10-07] MEDS: LABETALOL HCL 5 MG/1 ML (100MG/20 ML VIAL) IVPUSH ONE (11:20)
[2023-10-07 14:30] LABS: EPI CELLS >36 /uL (0-25.1); HYALINE CASTS 9 /uL (0-3.1); URINE APPEARANCE TURBID; URINE BACTERIA 16 /uL (0-1359); URINE BILIRUBIN NEGATIVE (NEGATIVE); URINE COLOR YELLOW; URINE GLUCOSE (UA) NEGATIVE (NEGATIVE); URINE KETONE NEGATIVE (NEGATIVE); URINE LEUK ESTERASE 1+ (NEGATIVE); URINE NITRITE NEGATIVE (NEGATIVE); URINE PROTEIN 1+ (NEGATIVE); URINE UROBILINOGEN 0.2 mg/dL (0.2-1.0); URINE WBC 498 /uL (0-25.8)
[2023-10-07 14:56] LABS: URINE RBC 169.4 /uL (0-23.9); YEAST NEGATIVE (NEGATIVE)
[2023-10-07] MEDS ORDERED: guaiFENesin 200 MG/10 ML 10 ML UNIT-DOSE CUPS PO PRN (18:17)
[2023-10-07] MEDS: MUPIROCIN 2% TOPICAL OINTMENT FOR DECOLONIZATION NS SCH (22:48)
[2023-10-07] MEDS: DEXMEDETOMIDINE PREMIX 400 MCG/100 ML BAG IVPB SCH (22:48)
[2023-10-07] MEDS: LIDOCAINE PATCH REMOVAL MC SCH (22:49)
[2023-10-07] MEDS: CHLORHEXIDINE GLUCONATE 4% CLEANSER FOR DECOLONIZATION TP SCH (22:49)
[2023-10-07] MEDS: NAPH,MB-DB/K PH,MBDB POWDER PACKET PO SCH (22:49)
[2023-10-07] MEDS: MELATONIN 5 MG TABLETS PO SCH (22:49)
[2023-10-07] MEDS: MIRTAZAPINE 15 MG TABLET (FP) PO SCH (22:50)
[2023-10-07] MEDS: SODIUM CHLORIDE 1,000 ML IV SCH (23:45)
[2023-10-08] MEDS: PIPERACILLIN/TAZOB 2.25 GM 2.25 GM in DEXTROSE 5%-WATER - 50 ML IVPB SCH (02:16)
[2023-10-08 07:36] LABS: HEMATOCRIT 21.6 % (32.4-45.2); HEMOGLOBIN 7.2 GM/dL (10.7-15.3); MCH 28.4 pg (25.7-33.7); MCHC 33.1 g/dl (32.0-36.0); MEAN CELL VOLUME 85.7 fl (80-96); MEAN PLT VOLUME 8.1 fl (7.5-11.1); PLATELET COUNT 146 10^3/uL (134-434); RBC 2.52 M/mm3 (3.60-5.2); RDW 17.9 % (11.6-15.6); WHITE BLOOD COUNT 12.3 K/mm3 (4.0-10.0)
[2023-10-08 07:43] LABS: POTASSIUM 3.3 mmol/L (3.5-5.1)
[2023-10-08 07:50] LABS: ALBUMIN 1.3 g/dl (3.4-5.0); BLOOD UREA NITROGEN 84.4 mg/dL (7-18); CALCIUM 7.9 mg/dL (8.5-10.1); MAGNESIUM 1.8 mg/dL (1.8-2.4)
[2023-10-08 07:53] LABS: BILIRUBIN,TOTAL 0.6 mg/dL (0.2-1); CREATININE 2.3 mg/dL (0.55-1.3); PHOSPHOROUS 5.5 mg/dL (2.5-4.9); TOT PROT 5.9 g/dl (6.4-8.2)
[2023-10-08 08:47] LABS: ANISOCYTOSIS 3+; MACROCYTOSIS 0
[2023-10-08] MEDS: POTASSIUM CHLORIDE ORAL LIQUID 20 MEQ/15 ML PO ONE (08:56)
[2023-10-08] MEDS: AMINO ACIDS/PROTEIN HYDROLYS 30 ML LIQUID.PKT PO SCH (08:56)
[2023-10-08] MEDS: LIDOCAINE 4% PATCH TP SCH (09:07)
[2023-10-08] MEDS: PANTOPRAZOLE SODIUM 40 MG VIAL IVPUSH SCH (09:07)
[2023-10-08] MEDS: MULTIVITAMINS (DAILY MVI) TABLET (FP) PO SCH (09:16)
[2023-10-08] MEDS: AMINO ACIDS 4.25%/D5W 1,000 ML IV SCH (13:00)
[2023-10-08] MEDS: ACETAMINOPHEN 1000 MG/100 ML BAG IVPB PRN (17:14)
[2023-10-08] MEDS: SODIUM CHLORIDE 1,000 ML IV SCH (18:30)
[2023-10-09 07:41] LABS: POTASSIUM 3.4 mmol/L (3.5-5.1)
[2023-10-09 07:43] LABS: BLOOD UREA NITROGEN 86.6 mg/dL (7-18); CALCIUM 7.4 mg/dL (8.5-10.1)
[2023-10-09 07:44] LABS: ALBUMIN 1.4 g/dl (3.4-5.0); MAGNESIUM 1.6 mg/dL (1.8-2.4)
[2023-10-09 07:47] LABS: CREATININE 2.3 mg/dL (0.55-1.3)
[2023-10-09 07:48] LABS: BILIRUBIN,TOTAL 0.4 mg/dL (0.2-1); TOT PROT 5.9 g/dl (6.4-8.2)
[2023-10-09] MEDS: POTASSIUM CHLORIDE ORAL LIQUID 20 MEQ/15 ML PO ONE (13:02)
[2023-10-09 16:11] LABS: FREE KAPPA,SERUM 153.3 mg/L (3.3-19.4)
[2023-10-10 07:47] LABS: HEMATOCRIT 22.8 % (32.4-45.2); HEMOGLOBIN 7.5 GM/dL (10.7-15.3); MCH 28.9 pg (25.7-33.7); MEAN CELL VOLUME 87.7 fl (80-96); MEAN PLT VOLUME 7.9 fl (7.5-11.1); PLATELET COUNT 174 10^3/uL (134-434); RDW 18.1 % (11.6-15.6); WHITE BLOOD COUNT 10.8 K/mm3 (4.0-10.0)
[2023-10-10 08:08] LABS: POTASSIUM 3.2 mmol/L (3.5-5.1)
[2023-10-10 08:15] LABS: CALCIUM 7.6 mg/dL (8.5-10.1)
[2023-10-10 08:16] LABS: BLOOD UREA NITROGEN 80.9 mg/dL (7-18)
[2023-10-10 08:19] LABS: CREATININE 1.8 mg/dL (0.55-1.3)
[2023-10-10 08:46] LABS: MAGNESIUM 1.6 mg/dL (1.8-2.4)
[2023-10-10 09:26] LABS: ANISOCYTOSIS 0; MACROCYTOSIS 0
[2023-10-10 11:23] LABS: PHOSPHOROUS 4.2 mg/dL (2.5-4.9)
[2023-10-10] MEDS: MAGNESIUM 2GM/50ML STERILE WATER IVPB IVPB ONE (12:27)
[2023-10-10] MEDS: MAGNESIUM SULF 50% (8.12 MEQ/2 ML-1 GM VIAL) IVPB ONE ×2 (13:19→21:35)
[2023-10-10] MEDS: KCL 10 MEQ IVPB 10 MEQ/100 ML INFUS.BAG IVPB SCH (16:20)
[2023-10-10] MEDS: POTASSIUM CHLORIDE ORAL LIQUID 20 MEQ/15 ML PO SCH (16:27)
[2023-10-10 17:34] LABS: BF WBC & OTHER NUCLEATED CELLS 502 /mm3
[2023-10-10 19:11] LABS: ALBUMIN 1.4 g/dl (3.4-5.0)
[2023-10-10 19:12] LABS: BODY FLUID MACROPHAGES 4 %; BODY FLUID MESOTHELIAL 3 %; BODY FLUID MONOCYTE 3 %; BODYL FLD EOSINOPHIL 1 %
[2023-10-10] MEDS: ALBUMIN HUMAN 25% 12.5 GM/50 ML VIAL IV SCH (21:30)
[2023-10-11] MEDS: ACETAMINOPHEN 1000 MG/100 ML BAG IVPB PRN (03:51)
[2023-10-11 07:38] LABS: HEMATOCRIT 16.7 % (32.4-45.2); MCH 29.3 pg (25.7-33.7); MCHC 33.3 g/dl (32.0-36.0); MEAN CELL VOLUME 88.1 fl (80-96); MEAN PLT VOLUME 7.8 fl (7.5-11.1); PLATELET COUNT 179 10^3/uL (134-434); RBC 1.89 M/mm3 (3.60-5.2); RDW 18.2 % (11.6-15.6); WHITE BLOOD COUNT 9.2 K/mm3 (4.0-10.0)
[2023-10-11 07:48] LABS: HEMOGLOBIN 5.5 GM/dL (10.7-15.3)
[2023-10-11 07:58] LABS: CALCIUM 7.7 mg/dL (8.5-10.1); MAGNESIUM 1.9 mg/dL (1.8-2.4)
[2023-10-11 08:02] LABS: BILIRUBIN,TOTAL 0.6 mg/dL (0.2-1); CREATININE 1.6 mg/dL (0.55-1.3); PHOSPHOROUS 3.3 mg/dL (2.5-4.9); TOT PROT 5.7 g/dl (6.4-8.2)
[2023-10-11 08:08] LABS: ALBUMIN 1.9 g/dl (3.4-5.0); POTASSIUM 3.7 mmol/L (3.5-5.1)
[2023-10-11 09:24] LABS: ANISOCYTOSIS 0; MACROCYTOSIS 0
[2023-10-11] MEDS: FUROSEMIDE 40 MG/4 ML INJECTABLE VIAL IVPUSH ONE (10:49)
[2023-10-11 22:20] LABS: HEMATOCRIT 22.4 % (32.4-45.2); HEMOGLOBIN 7.3 GM/dL (10.7-15.3); MCH 28.3 pg (25.7-33.7); MCHC 32.5 g/dl (32.0-36.0); MEAN PLT VOLUME 7.5 fl (7.5-11.1); PLATELET COUNT 216 10^3/uL (134-434); RBC 2.57 M/mm3 (3.60-5.2); RDW 17.3 % (11.6-15.6); WHITE BLOOD COUNT 11.7 K/mm3 (4.0-10.0)
[2023-10-11 23:17] LABS: ANISOCYTOSIS 1+; OVALOCYTE 1+
[2023-10-11 23:27] LABS: PLATELET ESTIMATE ADEQUATE
[2023-10-12 10:57] LABS: HEMATOCRIT 18.7 % (32.4-45.2); MCH 28.5 pg (25.7-33.7); MCHC 32.6 g/dl (32.0-36.0); MEAN CELL VOLUME 87.5 fl (80-96); MEAN PLT VOLUME 7.7 fl (7.5-11.1); PLATELET COUNT 253 10^3/uL (134-434); RBC 2.14 M/mm3 (3.60-5.2); RDW 17.3 % (11.6-15.6)
[2023-10-12 11:01] LABS: HEMOGLOBIN 6.1 GM/dL (10.7-15.3)
[2023-10-12 11:20] LABS: ALBUMIN 1.8 g/dl (3.4-5.0); BLOOD UREA NITROGEN 70.4 mg/dL (7-18)
[2023-10-12 11:23] LABS: CREATININE 1.4 mg/dL (0.55-1.3)
[2023-10-12 11:25] LABS: BILIRUBIN,TOTAL 0.5 mg/dL (0.2-1)
[2023-10-12 11:32] LABS: ANISOCYTOSIS 2+; MACROCYTOSIS 0
[2023-10-12] MEDS ORDERED: guaiFENesin 200 MG/10 ML 10 ML UNIT-DOSE CUPS PO PRN (11:34)
[2023-10-12 12:03] LABS: POTASSIUM 3.7 mmol/L (3.5-5.1)
[2023-10-12 13:03] LABS: HEMOGLOBIN 8.5 GM/dL (10.7-15.3); MCH 28.3 pg (25.7-33.7); MCHC 32.7 g/dl (32.0-36.0); MEAN CELL VOLUME 86.6 fl (80-96); MEAN PLT VOLUME 7.5 fl (7.5-11.1); PLATELET COUNT 255 10^3/uL (134-434); RDW 17.8 % (11.6-15.6); WHITE BLOOD COUNT 12.3 K/mm3 (4.0-10.0)
[2023-10-12 13:48] LABS: ANISOCYTOSIS 2+; MACROCYTOSIS 0
[2023-10-12] MEDS: AMINO ACIDS 4.25%/D5W 1,000 ML IV SCH (14:00)
[2023-10-12] MEDS: ACETAMINOPHEN 1000 MG/100 ML BAG IVPB PRN (14:00)
[2023-10-12 16:08] LABS: BODY FLUID ALBUMIN 1.6 g/dL (Not Estab.)
[2023-10-12] MEDS: AMINO ACIDS/PROTEIN HYDROLYS 30 ML LIQUID.PKT PO SCH (17:11)
[2023-10-12] MEDS: MIRTAZAPINE 15 MG TABLET (FP) PO SCH (21:41)
[2023-10-12] MEDS: MELATONIN 5 MG TABLETS PO SCH (21:41)
[2023-10-12] MEDS: LIDOCAINE PATCH REMOVAL MC SCH (21:42)
[2023-10-12] MEDS: CHLORHEXIDINE GLUCONATE 4% CLEANSER FOR DECOLONIZATION TP SCH (21:44)
[2023-10-13 08:34] LABS: HEMATOCRIT 25.3 % (32.4-45.2); HEMOGLOBIN 8.3 GM/dL (10.7-15.3); MCH 28.9 pg (25.7-33.7); MCHC 32.6 g/dl (32.0-36.0); MEAN CELL VOLUME 88.7 fl (80-96); MEAN PLT VOLUME 7.7 fl (7.5-11.1); PLATELET COUNT 305 10^3/uL (134-434); RBC 2.86 M/mm3 (3.60-5.2); RDW 18.3 % (11.6-15.6); WHITE BLOOD COUNT 10.4 K/mm3 (4.0-10.0)
[2023-10-13 08:51] LABS: POTASSIUM 3.5 mmol/L (3.5-5.1)
[2023-10-13 08:53] LABS: ALBUMIN 1.7 g/dl (3.4-5.0); BLOOD UREA NITROGEN 69.7 mg/dL (7-18); CALCIUM 8.1 mg/dL (8.5-10.1)
[2023-10-13 08:56] LABS: CREATININE 1.1 mg/dL (0.55-1.3)
[2023-10-13 08:58] LABS: BILIRUBIN,TOTAL 0.4 mg/dL (0.2-1)
[2023-10-13 08:59] LABS: TOT PROT 5.7 g/dl (6.4-8.2)
[2023-10-13] MEDS: PANTOPRAZOLE SODIUM 40 MG VIAL IVPUSH SCH (09:52)
[2023-10-13] MEDS: LIDOCAINE 4% PATCH TP SCH (09:52)
[2023-10-13] MEDS: MULTIVITAMINS (DAILY MVI) TABLET (FP) PO SCH (09:52)
[2023-10-13 10:21] LABS: ANISOCYTOSIS 0; MACROCYTOSIS 0
[2023-10-13] MEDS: AMINO ACIDS 4.25%/D5W 1,000 ML IV SCH (12:18)
[2023-10-15 08:43] LABS: HEMATOCRIT 25.9 % (32.4-45.2); HEMOGLOBIN 8.3 GM/dL (10.7-15.3); MCH 28.6 pg (25.7-33.7); MCHC 32.1 g/dl (32.0-36.0); MEAN CELL VOLUME 89.1 fl (80-96); MEAN PLT VOLUME 7.3 fl (7.5-11.1); PLATELET COUNT 490 10^3/uL (134-434); RBC 2.91 M/mm3 (3.60-5.2); WHITE BLOOD COUNT 15.1 K/mm3 (4.0-10.0)
[2023-10-15 09:04] LABS: POTASSIUM 3.2 mmol/L (3.5-5.1)
[2023-10-15 09:15] LABS: ALBUMIN 1.9 g/dl (3.4-5.0); CALCIUM 8.4 mg/dL (8.5-10.1)
[2023-10-15 09:16] LABS: BLOOD UREA NITROGEN 65.1 mg/dL (7-18)
[2023-10-15 09:18] LABS: CREATININE 0.9 mg/dL (0.55-1.3)
[2023-10-15 09:20] LABS: BILIRUBIN,TOTAL 0.4 mg/dL (0.2-1); TOT PROT 6.3 g/dl (6.4-8.2)
[2023-10-15] MEDS: POTASSIUM CHLORIDE ORAL LIQUID 20 MEQ/15 ML PO ONE (16:58)
[2023-10-15] MEDS: KCL 10 MEQ IVPB 10 MEQ/100 ML INFUS.BAG IVPB SCH (16:58)
[2023-10-15] MEDS: POTASSIUM CHLORIDE 10 MEQ in AMINO ACIDS 4.25%/D5W 1,000 ML IV SCH (19:17)
[2023-10-16] MEDS: ACETAMINOPHEN 1000 MG/100 ML BAG IVPB ONE (03:36)
[2023-10-16] MEDS: TRIAMCINOLONE ACET 0.1% OINT 15 GM TUBE TP SCH (13:39)
[2023-10-16] MEDS: LORATADINE 10 MG TABLET PO SCH (13:40)
[2023-10-18] MEDS ORDERED: diphenhydrAMINE HCL 25 MG CAPSULE (FP) PO ONE (14:16)
[2023-10-18] MEDS: diphenhydrAMINE HCL 25 MG CAPSULE (FP) PO ONE (15:11)
[2023-10-18] MEDS: KETOROLAC TROMETHAMINE 15 MG/ML VIAL IVPUSH PRN (22:37)
[2023-10-19 08:38] LABS: POTASSIUM 4.1 mmol/L (3.5-5.1)
[2023-10-19 08:40] LABS: CALCIUM 7.9 mg/dL (8.5-10.1)
[2023-10-19 08:41] LABS: ALBUMIN 1.7 g/dl (3.4-5.0); BASO % 0.1 % (0-2.0); BLOOD UREA NITROGEN 82.8 mg/dL (7-18); EOS % 2.6 % (0-4.5); HEMATOCRIT 27.7 % (32.4-45.2); HEMOGLOBIN 8.3 GM/dL (10.7-15.3); LYMPH % 5.8 % (8-40); MAGNESIUM 1.6 mg/dL (1.8-2.4); MCH 28.5 pg (25.7-33.7); MEAN PLT VOLUME 7.5 fl (7.5-11.1); MONO % 2.5 % (3.8-10.2); PLATELET COUNT 438 10^3/uL (134-434); RBC 2.91 M/mm3 (3.60-5.2); RDW 22.3 % (11.6-15.6); WHITE BLOOD COUNT 14.9 K/mm3 (4.0-10.0)
[2023-10-19 08:44] LABS: PHOSPHOROUS 3.1 mg/dL (2.5-4.9)
[2023-10-19 08:45] LABS: BILIRUBIN,TOTAL 0.4 mg/dL (0.2-1); TOT PROT 5.7 g/dl (6.4-8.2)
[2023-10-19 10:20] LABS: ANISOCYTOSIS 1+; MACROCYTOSIS 0
[2023-10-19] MEDS: IPRATROPIUM BR 0.02% 0.5 MG/2.5 ML VIAL.NEB. NEB SCH (11:45)
[2023-10-19] MEDS: ACETAMINOPHEN 1000 MG/100 ML BAG IVPB PRN (15:40)
[2023-10-19] MEDS: MAGNESIUM 1GM/D5W 100ML - 100 ML IVPB IVPB ONE (15:58)
[2023-10-19] MEDS: DEXTROSE 5%-0.45% SALINE 1,000 ML IV SCH (17:34)
[2023-10-19] MEDS: SODIUM CHLORIDE 0.9% 500 ML INFUS.BAG IV ONE (21:23)
[2023-10-19] MEDS: IBUPROFEN 400 MG TABLET (FP) PO PRN (21:25)
[2023-10-19 23:35] VITALS: TEMP 97.5
[2023-10-20] MEDS: MIDODRINE HCL 2.5 MG TABLET PO ONE (02:00)
[2023-10-20 06:17] VITALS: BP 94/48; PULSE 99; RESP 19
[2023-10-20] MEDS ORDERED: PANTOPRAZOLE 40 MG TABLET PO SCH (10:00)
[2023-10-20] MEDS ORDERED: MIDODRINE HCL 5 MG TABLET PO SCH (10:00)
== END 2023-10-20 08:26 | disposition short-term general hospital (02) | DRG 820 ==
LOC: JER 22:35 → JERBED 09-13 02:15 → J5S 09-13 04:27 → J7W 09-15 13:30 → JICU 09-21 17:25 → J2W 09-24 20:13 → JICU 10-04 15:20 → J2W 10-07 16:24 → J5S 10-12 11:08
PROVIDERS: ADMIT Internal Medicine; ATTEND Internal Medicine
PROC: 30233N1 Transfusion of Nonautologous Red Blood Cells into Peripheral Vein, Percutaneous Approach (ICD-10-PCS; 2023-09-13)
PROC: 5A1935Z Respiratory Ventilation, Less than 24 Consecutive Hours (ICD-10-PCS; 2023-09-21)
PROC: 0BH17EZ Insertion of Endotracheal Airway into Trachea, Via Natural or Artificial Opening (ICD-10-PCS; 2023-09-21)
PROC: 05HF33Z Insertion of Infusion Device into Left Cephalic Vein, Percutaneous Approach (ICD-10-PCS; 2023-09-21)
PROC: B54NZZA Ultrasonography of Left Upper Extremity Veins, Guidance (ICD-10-PCS; 2023-09-21)
PROC: 0FT44ZZ Resection of Gallbladder, Percutaneous Endoscopic Approach (ICD-10-PCS; principal; 2023-09-21 10:30)
PROC: 03HY32Z Insertion of Monitoring Device into Upper Artery, Percutaneous Approach (ICD-10-PCS; 2023-09-22)
PROC: 4A133B1 Monitoring of Arterial Pressure, Peripheral, Percutaneous Approach (ICD-10-PCS; 2023-09-22)
PROC: 4A133J1 Monitoring of Arterial Pulse, Peripheral, Percutaneous Approach (ICD-10-PCS; 2023-09-22)
PROC: 03HY32Z Insertion of Monitoring Device into Upper Artery, Percutaneous Approach (ICD-10-PCS; 2023-10-04)
PROC: 4A133B1 Monitoring of Arterial Pressure, Peripheral, Percutaneous Approach (ICD-10-PCS; 2023-10-04)
PROC: 4A133J1 Monitoring of Arterial Pulse, Peripheral, Percutaneous Approach (ICD-10-PCS; 2023-10-04)
PROC: 05HM33Z Insertion of Infusion Device into Right Internal Jugular Vein, Percutaneous Approach (ICD-10-PCS; 2023-10-04)
PROC: B543ZZA Ultrasonography of Right Jugular Veins, Guidance (ICD-10-PCS; 2023-10-04)
PROC: 0W9B3ZZ Drainage of Left Pleural Cavity, Percutaneous Approach (ICD-10-PCS; 2023-10-10)
PROC: 05HF33Z Insertion of Infusion Device into Left Cephalic Vein, Percutaneous Approach (ICD-10-PCS; 2023-10-10)
PROC: B54NZZA Ultrasonography of Left Upper Extremity Veins, Guidance (ICD-10-PCS; 2023-10-10)
DX: C83.30 Diffuse large B-cell lymphoma, unspecified site (principal); A41.9 Sepsis, unspecified organism; J10.00 Influenza due to other identified influenza virus with unspecified type of pneumonia; R65.21 Severe sepsis with septic shock; E43 Unspecified severe protein-calorie malnutrition; I50.31 Acute diastolic (congestive) heart failure; K80.00 Calculus of gallbladder with acute cholecystitis without obstruction; E87.20 Acidosis, unspecified; N17.9 Acute kidney failure, unspecified; J90 Pleural effusion, not elsewhere classified; E87.0 Hyperosmolality and hypernatremia; D50.9 Iron deficiency anemia, unspecified; G25.0 Essential tremor; R16.1 Splenomegaly, not elsewhere classified; D63.8 Anemia in other chronic diseases classified elsewhere; E83.42 Hypomagnesemia; E83.39 Other disorders of phosphorus metabolism; R06.02 Shortness of breath; R62.7 Adult failure to thrive; L50.9 Urticaria, unspecified; Z68.22 Body mass index [BMI] 22.0-22.9, adult; R19.7 Diarrhea, unspecified; R74.01 Elevation of levels of liver transaminase levels
CPT/HCPCS: 0241U-QW; 36415; 36430; 36600; 70551-TC; 71045-TC-FY; 74018-TC-FY; 74170-TC; 74176-TC; 74183-TC; 76705-TC; 76775-TC; 80048; 80053; 80076; 81003; 82040; 82042; 82140; 82272; 82728; 82803; 82945; 82962; 83010; 83540; 83550; 83605; 83615; 83735; 83880; 83883; 84100; 84155; 84165; 84300; 84484; 84540; 85025; 85027; 85045; 85610; 85730; 86038; 86705; 86850; 86900; 86901; 86922; 87040; 87070; 87075; 87086; 87205; 87324; 87449; 87517; 87633; 87635; 88304-TC; 93005; 93010; 93306-TC; 93970-TC; 93971; 94002; 94640; 94760; 97116-GP; 97162-GP; 99285-25; J0131; J1644; P9038; P9047; P9058; Q9967